=== PATIENT | female | born 2005 | race Caucasian/White ===

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

== ENCOUNTER 2025-07-06 20:05 | Emergency (ER) | payer SELFPAY ==
[2025-07-06 20:05] VITALS: BP 167/75; PULSE 99; RESP 16; TEMP 36.9; O2SAT 100; BMI 24.5
--- NOTE | 2025-07-06 20:25 | CT_ITS ---
PROCEDURE: ABDOMEN/PELVIS W IV CONT ONLY 07/06/2025 REASON FOR EXAM: ABDOMINAL PAIN TECHNIQUE: Procedure Code: [id number] Modality: CT Procedure: ABDOMEN/PELVIS W IV CONT ONLY Coronal and Sagittal reconstruction series were provided. CONTRAST: 100 cc of Isovue 370 One or more dose reduction techniques were used (e.g., Automated exposure control, adjustment of the mA and/or kV according to patient size, use of iterative reconstruction technique. COMPARISON: None available. FINDINGS: Lung bases: Unremarkable. Liver: Normal size. No mass. Gallbladder: Unremarkable. No biliary ductal dilatation. Spleen: Normal size. Pancreas: Normal size without evidence of mass surrounding inflammation or ductal dilation. Adrenals: No masses. Kidneys: Normal renal sizes. No hydronephrosis. Bladder: Unremarkable. Reproductive Organs: Normal uterine size and contour. Fluid-filled endometrium is likely physiologic. Ovaries are unremarkable. Bowel: Moderate colonic stool burden suggesting constipation. No bowel obstruction. No inflammatory changes. Appendix: The appendix is not identified. There is no inflammatory process identified in the right lower quadrant to suggest appendicitis. Lymph nodes: Unremarkable. Vasculature: The abdominal aorta and IVC are normal. Peritoneum / Retroperitoneum: No free fluid or air. Bones: No acute fractures. CT/Abdomen/Pelvis W IV Cont ONLY IMPRESSION: 1. No acute findings in the abdomen or pelvis. 2. Moderate colonic stool burden suggesting constipation. Reading Location: [facility]
--- NOTE | 2025-07-06 20:27 | ED.VIS.GI ---
HPI <Dr. Yasmany Gonzáles DO - Last Filed: 07/07/25 01:01> HPI - GI History of Present Illness Chief Complaint: Abd Pain Informant: patient Abdominal Pain/Flank Pain Onset: Days (3) Context: Gradual Onset Timing: Continuous Quality: Burning and Stabbing Location: LUQ Worsened by: Nothing Relieved by: Nothing Nausea/Vomiting/Emesis GI Symptom: Positive for Nausea and Vomiting Quality: Positive for Nonbilious; Negative for Blood streaks, Coffee ground or Hematemesis Diarrhea/Melena/Hematochezia GI Symptom: Negative for Diarrhea, Melena or Hematochezia Associated Symptoms Associated Symptoms: Negative for Dysuria, Frequency or Hematuria LMP: 06/21/2025 Narrative Narrative: Patient presents with left upper quadrant abdominal pain that has been constant for the past 3 days. Patient states it is gradually getting worse. Patient describes it as burning and stabbing. Patient states it is mainly over the left upper abdomen. Patient admits to some nausea and vomiting. Patient denies any hematemesis or coffee-ground emesis. Patient states nothing makes it better and nothing makes it worse. Patient denies any diarrhea, melena, or hematochezia. Patient denies any dysuria, frequency, or hematuria. Patient dates her last menstrual period was 06/21/2025. Patient denies any fevers or chills. PFSH <Dr. Yasmany Gonzáles, - Last Filed: 07/07/25 01:01> PFS Medical History (Updated 07/07/25 @ 04:[address] Marito Montanez MD) Depression Medical History no medical history Home Medications Medication Instructions Recorded Last Taken Type sertraline 25 mg tablet 25 mg PO .q3days 10/04/24 Unknown History dicyclomine 20 mg tablet 20 mg PO Q6H PRN PRN abdominal 07/07/25 Unknown Rx discomfort #12 tabs Allergy/AdvReac Type Severity Reaction Status Date / Time No Known Allergies Allergy Verified 07/06/25 20:06 Surgical History no surgical history no surgical history Social History Smoking Status: Never smoker ROS <Dr. Yasmany Gonzáles, DO - Last Filed: 07/07/25 01:01> ROS ED Constitutional Constitutional ED: Denies chills or fever(s) Eyes Eyes: Denies blurry vision or change in vision ENT ENT ED: Denies rhinorrhea or sore throat Cardiovascular Cardiovascular: Denies chest pain or palpitations Respiratory/Chest Respiratory/Chest: Denies cough or dyspnea Gastrointestinal Gastrointestinal: Reports abdominal pain, nausea and vomiting; Denies diarrhea or melena Genitourinary Genitourinary ED: Denies dysuria or hematuria Musculoskeletal Musculoskeletal: Denies back pain or neck pain Integumentary Denies abscess or rash Neurologic Neurologic: Denies headache(s) or weakness Allergic/Immunologic Allergic/Immunologic ED: Denies mouth swelling or urticaria EXAM <Dr. Yasmany Gonzáles DO - Last Filed: 07/07/25 01:01> Physical Exam Const Vital Signs: 07/06/25 20:05 07/06/25 22:24 07/07/25 00:00 Temperature 98.5 F Temperature Source Oral Pulse Rate 99 84 78 Respiratory Rate 16 16 14 Blood Pressure 167/75 H 137/86 H 114/72 Blood Pressure Mean 105 103 86 Pulse Ox 100 100 98 Oxygen Delivery Method Room Air Room Air Room Air 07/07/25 02:00 07/07/25 04:00 Temperature Temperature Source Pulse Rate 74 76 Respiratory Rate 14 12 Blood Pressure 114/62 116/79 Blood Pressure Mean 79 91 Pulse Ox 97 98 Oxygen Delivery Method Room Air Room Air Positive well nourished and well developed General Appearance ED: well developed and NAD HEENT Reports moist mucous membranes Neck supple and no JVD Resp normal respiratory effort and clear to auscultation bilaterally Cardio regular rate and regular rhythm GI non-distended Palpation: soft and tender epigastric and LUQ; Negative for guarding or rebound tenderness present Neuro CN's II-XII intact bilaterally, moves all extremities and no sensory deficits noted Sensorium / Orientation: alert Motor Exam: strength 5/5 throughout Psych mental status grossly normal <Dr. Marito Montanez MD - Last Filed: 07/07/25 04:55> Physical Exam Const Vital Signs: 07/06/25 20:05 07/06/25 22:24 07/07/25 00:00 Temperature 98.5 F Temperature Source Oral Pulse Rate 99 84 78 Respiratory Rate 16 16 14 Blood Pressure 167/75 H 137/86 H 114/72 Blood Pressure Mean 105 103 86 Pulse Ox 100 100 98 Oxygen Delivery Method Room Air Room Air Room Air 07/07/25 02:00 07/07/25 04:00 Temperature Temperature Source Pulse Rate 74 76 Respiratory Rate 14 12 Blood Pressure 114/62 116/79 Blood Pressure Mean 79 91 Pulse Ox 97 98 Oxygen Delivery Method Room Air Room Air [facility] <Dr. Yasmany Gonzáles, DO - Last Filed: 07/07/25 01:01> [facility] Narrative Medical decision making narrative: Differential diagnosis includes gastritis, gastroenteritis, cholecystitis, cholelithiasis, choledocholithiasis, peptic ulcer disease, duodenal ulcer, pancreatitis, urinary tract infection, ureteral calculus, pyelonephritis, and . CT scan of the abdomen and pelvis will be obtained to assess for cholecystitis, cholelithiasis, pancreatitis, ureteral calculus, bowel obstruction, and perforation. CBC will be obtained to assess for leukocytosis and anemia. Comprehensive metabolic profile will be obtained to assess for hepatic function, renal function, and electrolyte abnormality. Lipase will be obtained to assess for pancreatitis. Serum hCG will be obtained to assess for . History & Record Review Additional record(s) reviewed:: Prior ED visit Lab Data Attestation: I reviewed the patient's lab results. Lab results narrative: CBC was reviewed. There is a mild anemia with a hemoglobin of 11.9. The remainder is within normal limits. Comprehensive metabolic profile was reviewed and was within normal limits. Lipase was reviewed and was normal at 15. Serum hCG was reviewed and was negative. Labs: Laboratory Results - last 24 hr 07/06/25 20:32 WBC 10.1 RBC 4.50 Hgb 11.9 L Hct 37.1 MCV 82.4 MCH 26.4 L MCHC 32.1 RDW Std Deviation 44.4 H RDW Coeff of Sam 14.7 H Plt Count 315 MPV 10.4 Immature Gran % (Auto) 0.300 Neut % (Auto) 63.2 Lymph % (Auto) 26.0 [place] % (Auto) 8.7 Eos % (Auto) 1.4 Baso % (Auto) 0.4 Absolute Neuts (auto) 6.4 Absolute Lymphs (auto) 2.63 Nucleated RBC % 0 Sodium 140 Potassium 3.7 Chloride 102 Carbon Dioxide 26.6 Anion Gap 12 BUN 10 Creatinine 0.72 Estim Creat Clear Calc 107.13 Est GFR (MDRD) Non-Af 122 BUN/Creatinine Ratio 13.3 Glucose 105 H Calcium 9.4 Total Bilirubin < 0.15 AST 21 ALT 17 Alkaline Phosphatase 60 Total Protein 7.5 Albumin 4.7 Globulin 2.9 Albumin/Globulin Ratio 1.6 Lipase 15 Serum , Qual NEGATIVE Radiography Diagnostic Testing: Clinical Impression(s) from Imaging Studies Abdomen/Pelvis CT 07/06/25 20:25 IMPRESSION: 1. No acute findings in the abdomen or pelvis. 2. Moderate colonic stool burden suggesting constipation. Reading Location: [facility] Treatment and Re-Evaluation :: Patient was given IV fluids, morphine, and Zofran. Patient was given a repeat dose of morphine. Patient was feeling better on reevaluation. Patient was advised of her findings. Care of the patient was turned over to the oncoming physician pending CT scan results. <Dr. Marito Montanez MD - Last Filed: 07/07/25 04:55> [facility] Lab Data Labs: Laboratory Results - last 24 hr 07/06/25 20:32 WBC 10.1 RBC 4.50 Hgb 11.9 L Hct 37.1 MCV 82.4 MCH 26.4 L MCHC 32.1 RDW Std Deviation 44.4 H RDW Coeff of Sam 14.7 H Plt Count 315 MPV 10.4 Immature Gran % (Auto) 0.300 Neut % (Auto) 63.2 Lymph % (Auto) 26.0 [place] % (Auto) 8.7 Eos % (Auto) 1.4 Baso % (Auto) 0.4 Absolute Neuts (auto) 6.4 Absolute Lymphs (auto) 2.63 Nucleated RBC % 0 Sodium 140 Potassium 3.7 Chloride 102 Carbon Dioxide 26.6 Anion Gap 12 BUN 10 Creatinine 0.72 Estim Creat Clear Calc 107.13 Est GFR (MDRD) Non-Af 122 BUN/Creatinine Ratio 13.3 Glucose 105 H Calcium 9.4 Total Bilirubin < 0.15 AST 21 ALT 17 Alkaline Phosphatase 60 Total Protein 7.5 Albumin 4.7 Globulin 2.9 Albumin/Globulin Ratio 1.6 Lipase 15 Serum , Qual NEGATIVE Radiography Diagnostic Testing: Clinical Impression(s) from Imaging Studies Abdomen/Pelvis CT 07/06/25 20:25 IMPRESSION: 1. No acute findings in the abdomen or pelvis. 2. Moderate colonic stool burden suggesting constipation. Reading Location: [facility] Treatment and Re-Evaluation Comments:: Patient checked out to me pending CT results. There were significant delays, the patient was here for almost [address] resulted. I reviewed the images and the report which I agree with and it is essentially negative for any acute but there is a significant amount of stool burden in the colon. I did reevaluated the patient. She is asymptomatic and is doing well. She was having left upper quadrant pain, and she does confirm that she has been having some constipation lately and trouble getting all of the stool out, or so it felt to her. Given this, it certainly is conceivable she was having colonic spasms as etiology for her pain in the last couple days. I am going to give her prescription for some dicyclomine just in case the pain returns and advise that she use a stool softener and follow-up with her doctor she is comfortable with that plan. Discharge Plan Triage Chief Complaint: Abd Pain ED Provider: Yasmany Gonzáles Dx/Rx/DC Orders Clinical Impression: Abdominal pain, left upper quadrant, Constipation Instructions: ED Abdominal Pain Unkn Cause Fem, ED Constipation (Adult) Prescriptions: New dicyclomine 20 mg tablet 20 mg PO Q6H PRN PRN (Reason: abdominal discomfort) Qty: 12 0RF No Action sertraline 25 mg tablet 25 mg PO .q3days Patient Comments: pt is in processing of tapering down on medication Primary Care Provider: Elen Turner NP Referrals: Elen Turner NP, [employer] [Primary Care Provider, Medical] - 5-7 Days Print Language: Lao Disposition Disposition: Home, Self Care D/C Safety Score for UGIB <Dr. Yasmany Gonzáles, DO - Last Filed: 07/07/25 01:01> Assessment [place] Bleeding Score (GBS): Stratifies upper GI bleeding patients who are "low-risk" and candidates for outpatient management. Hemoglobin, BUN, Recent Vital Signs: Hgb 11.9 g/dL (12.0-15.0) L 07/06/25 20:32 BUN 10 mg/dL (4-19) 07/06/25 20:32 Pulse Rate 76 Blood Pressure 116/79 Score Interpretation: Score of 0: A GBS of 0 is a “Low Risk” GI bleed, and is highly sensitive (99.6% in a 2007 retrospective study) for predicting which patients did not require any “medical intervention”: blood transfusion, endoscopy, or surgery. This was confirmed in a 2009 [facility] study where patients with a score of 0 were actually discharged and had no GI bleeding mortality at 6 month followup Score above 0: A GBS greater than zero suggests a “High Risk” GI bleed that is likely to require “medical intervention”: transfusion, endoscopy, or surgery. A higher GBS also correlated with a higher likelihood of needing intervention Scores >/= 6 are associated with >50% risk of needing intervention <Dr. Marito Montanez MD - Last Filed: 07/07/25 04:55> Assessment Hemoglobin, BUN, Recent Vital Signs: Hgb 11.9 g/dL (12.0-15.0) L 07/06/25 20:32 BUN 10 mg/dL (4-19) 07/06/25 20:32 Pulse Rate 76 Blood Pressure 116/79 D/C Safety Score for LGIB <Dr. Yasmany Gonzáles DO - Last Filed: 07/07/25 01:01> Assessment Assessment Tool: Readmission and adverse event risk in patients with acute lower GI bleeding. Hemoglobin and Recent Vital Signs: Hgb 11.9 g/dL (12.0-15.0) L 07/06/25 20:32 Pulse Rate 76 07/07/25 04:00 Blood Pressure 116/79 07/07/25 04:00 Score Interpretation: Probability Percentage of safe discharge (absence of rebleeding, blood transfusion, therapeutic intervention, 28 day readmission, or ) Score of 8 or below: Consider discharge, with appropriate precautions. Score of 9 or above: Discharge NOT recommended. Consider admission with further workup and resuscitation as necessary. <Dr. Marito Montanez MD - Last Filed: 07/07/25 04:55> Assessment Hemoglobin and Recent Vital Signs: Hgb 11.9 g/dL (12.0-15.0) L 07/06/25 20:32 Pulse Rate 76 07/07/25 04:00 Blood Pressure 116/79 07/07/25 04:00
[2025-07-06] MEDS: 0.9% Normal Saline (1000mL) 1,000 ML 999 ML IV (20:31)
[2025-07-06 20:44] LABS: Hematocrit 37.1 % (37-47); Hemoglobin 11.9 g/dL (12.0-15.0); Immature Granulocytes Count 0.030 X10^3/uL (0.0-0.0); Mean Corp Hgb Conc 32.1 g/dL (32-36); Mean Corpuscular Volume 82.4 fL (81-99); Mean Platelet Vol. 10.4 fl (6.2-12.0); NRBC Flagged by Analyzer 0 % (0-5); Platelet Count 315 K/mm3 (150-450); RBC Distribution Width CV 14.7 % (11.6-14.6); RBC Distribution Width SD 44.4 fl (35.1-43.9); Red Blood Count 4.50 M/mm3 (4.2-5.4); White Blood Count 10.1 K/mm3 (4.4-11.0)
--- OUTSIDE RECORDS SUMMARY | 2025-07-06 20:49 | XMS RPT_ITS | CCD ---
Author Organization [facility] Care Team Providers Care Prepress Specialist Name Role Phone Christine Archibald Unavailable Paul Winter Unavailable BRIEN DUDLEY Unavailable Unavailable REFERRED, SELF Unavailable Unavailable BRIEN DUDLEY Unavailable Unavailable Garcia Domingo MD Primary Care Provider Garcia Domingo MD Primary Care Provider Garcia Domingo MD Primary Care Provider Danna Curiel MD Primary Care Provider Podlogar CRATE BUILDER.Negro MOTA Unavailable Roni Viera Attending Unavailable Podlogar COMPLIANCE REVIEW OFFICERNegro Primary Care Unavailable Podlogar CRATE BUILDER.Negro MOTA Unavailable Knoble CRATE BUILDER.Jo MOTA Unavailable Knoble CRATE BUILDER.Jo MOTA Unavailable SEIFRIED, GARCIA Primary Care Unavailable SEIFRIED, GARCIA Attending Unavailable SEIFRIED, GARCIA Attending Unavailable SEIFRIED, GARCIA Primary Care Unavailable SEIFRIED, GARCIA Primary Care Unavailable SEIFRIED, GARCIA Attending Unavailable SELF Referring Unavailable DANNA CURIEL Primary Care Unavailab yosef PODLOGARNEGRO Attending Unavailable DANNA CURIEL Primary Care Unavailab le PODLOGARNEGRO Attending Unavailable BRIANDA, GARCIA Referring Unavailable Medications Current Medications Medication Drug Class(es) Dates Sig (Normalized) Sig (Original) ferrous sulfate 325 mg oral tablet (3 sources) Start: 05-04-2022 End: 08-02-2022 take 1 tablet by mouth once daily at breakfast ferrous sulfate 325 mg (65 mg iron) tablet Take 1 tablet by mouth daily with breakfast. 30 tablet 2 05/04/2022 08/02/2022 Active Comment on above: Take 1 tablet by emelia th daily with breakfast. sertraline 25 mg oral tablet (20 sources) Serotonin Reuptake Inhibitor Start: 03-19-2025 take 1 tablet by mouth once daily sertraline (ZOLOFT) 25 mg tablet Indications: Anxiety with depression Take 1 tablet by mouth once daily. 30 tablet 5 03/19/2025 Active Start: 03-19-2025 take 1 tablet by emelia th once daily sertraline (ZOLOFT) 50 mg tablet Indications: Anxiety with depression Take 1 tablet by mouth once daily. 30 tablet 5 03/19/2025 Active Start: 04-25-2024 End: 03-15-2025 take 1 tablet by mouth once daily sertraline (ZOLOFT) 25 mg tablet Indications: Anxiety with depression take 1 tablet by mouth once daily 30 tablet 5 12/27/2024 03/15/2025 Discontinued Start: 02-20-2024 End: 03-15-2025 take 1 tablet by mouth once daily sertraline (ZOLOFT) 50 mg tablet Indications: Anxiety with depression take 1 tablet by mouth once daily 30 tablet 5 12/27/2024 03/15/2025 Discontinued Start: 01-23-2024 End: 02-20-2024 take 1 tablet by mouth once daily sertraline (ZOLOFT) 25 mg tablet Indications: Anxiety with depression Take 1 tablet by mouth once daily. 30 tablet 1 01/23/2024 02/20/2024 Discontinued Start: 05-17-2022 End: 10-17-2023 take 1 tablet by mouth once daily sertraline (ZOLOFT) 25 mg tablet Indications: Anxiety with depression Take 1 tablet by mouth once daily. 30 tablet 2 06/16/2022 10/17/2023 Discontinued (Discontinued by Patient) Comment on above: Take 1 tablet by emelia th once daily. Completed/Discontinued Medications Medication Drug Class(es) Dates Sig (Normalized) Sig (Original) cholecalciferol, vitamin D3, (VITAMIN D3 ORAL) (6 sources) End: 12-20-2022 cholecalciferol, vitamin D3, (VITAMIN D3 ORAL) Take by mouth. 0 12/20/2022 Discontinued cholecalciferol, vitamin D3, (VITAMIN D3 ORAL) Take by mouth. 0 Active Comment on above: Take by mouth. doxycycline monohydrate 100 mg oral capsule (9 sources) Tetracycline-class Drug Start: End: doxycycline monohydrate (MONODOX) 100 mg capsule TAKE 1 CAPSULE BY MOUTH ONCE DAILY INCREASE DOSE DIRECTED FOR MONTHLY FLARES TO TWICE PER DAY FOR 7 DAYS EACH MONTH TOLERATED 03/08/2022 10/17/2023 Discontinued (Course of therapy completed) Comment on above: TAKE 1 CAPSULE BY [facility] ONCE DAILY INCREASE DOSE DIRECTED FOR MONTHLY FLARES TO TWICE PER DAY FOR 7 DAYS EACH MONTH TOLERATED fluticasone propionate 0.05 mg/actuat metered dose nasal spray (1 source) Corticosteroid Start: End: take 1 spray(s) nasal route once daily fluticasone (FLONASE) 50 mcg/actuation nasal spray Indications: Ear congestion, left Use 1 [place] in each nostril once daily. 15.8 mL 0 08/28/2021 04/29/2022 Discontinued (Other) Comment on above: Use 1 [place] in each nostril once daily. meclizine hydrochloride 12.5 mg oral tablet (10 sources) Antiemetic Start: End: take 1-2 tablets by mouth three times daily as needed for dizziness meclizine (ANTIVERT) 12.5 mg tab Indications: Vestibular disequilibrium involving left inner ear Take 1-2 tablets by mouth three times a day as needed (for dizziness). 60 tablet 0 10/17/2023 01/23/2024 Discontinued (Discontinued by Patient) Start: 08-28-2021 End: 12-20-2022 take 1-2 tablets by mouth three times daily as needed for dizziness meclizine (ANTIVERT) 12.5 mg tab Indications: Vestibular disequilibrium involving left inner ear Take 1-2 tablets by mouth three times daily as needed (for dizziness). 60 tablet 0 08/28/2021 12/20/2022 Discontinued Comment on above: Take 1-2 tablets by mouth three times daily as needed (for dizziness). Take 1-2 tablets by mouth three times a day as needed (for dizziness). propylene glycol 6 mg/ml ophthalmic solution (8 sources) Start: 11-24-2023 End: 09-10-2024 propylene glycoL (SYSTANE BALANCE) 0.6 % drop Use 1 Drop in both eyes two times a day. 15 mL 4 11/24/2023 09/10/2024 Discontinued (Course of therapy completed) Comment on above: Use 1 Drop in both e yes two times a day. tretinoin 0.0001 mg/mg topical gel (17 sources) Retinoid Start: 03-08-2022 End: 09-10-2024 tretinoin (RETIN-A) 0.01 % gel APPLY A PEA SIZED GLOBULE DIVIDED UP DIRECTED TO ACNE AFFECTED AREAS OF FACE EACH EVENING. LEAVE ON OVERNIGHT TOLERATED 03/08/2022 09/10/2024 Discontinued Comment on above: APPLY A PEA SIZED GL OBULE DIVIDED UP DIRECTED TO ACNE AFFECTED AREAS OF FACE EACH EVENING. LEAVE ON OVERNIGHT TOLERATED tropicamide 10 mg/ml ophthalmic solution (1 source) Anticholinergic Start: 11-24-2023 End: 11-24-2023 tropicamide 1 % 1 Drop (MYDRIACYL) Problems Active Problems Problem Classification Problem Date Documented Da te Episodic/Chronic Anxiety disorders (11 sources) Mixed anxiety and depressive disorder; Translations: [Other specified anxiety disorders] Onset: 09-10-2024 Chronic Blindness and vision defects (5 sources) Blurring of visual image; Translations: [Other visual disturbances] 10-17-2023 Episodic Conditions associated with dizziness or vertigo (3 sources) Labyrinthine disorder; 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, left ear] 10-17-2023 Episodic Headache; including migraine (3 sources) Headache; Translations: [Recurrent headache] 10-17-2023 Episodic Inflammation; infection of eye (except that caused by tuberculosis or sexually transmitteddisease) (1 source) Bilateral superficial keratitis; Translations: [Unspecified superficial keratitis, bilateral] 11-24-2023 Episodic Mood disorders (2 sources) Major depression single episode, in partial remission; Translations: [Major depressive disorder, single episode, in partial remission] Onset: 02-11-2025 02-11-2025 Chronic Nutritional deficiencies (20 sources) Vitamin D deficiency; Translations: [Vitamin D deficiency, unspecified] Onset: 10-22-2020 10-22-2020 Chronic Other non-traumatic joint disorders (2 sources) Pain in left knee; Translations: [Pain in joint, lower leg] Episodic Superficial injury; contusion (1 source) External constriction of right ring finger, initial encounter; Translations: [External constriction of right ring finger, initial encounter] Onset: 10-18-2024 Episodic Past or Other Problems Problem Classification Problem Date Documented Da te Episodic/Chronic Fracture of upper limb (3 sources) Greenstick fracture of shaft of radius, right arm, initial encounter for closed fracture; Translations: [Greenstick fracture of shaft of radius, right arm, initial encounter for closed fracture] Onset: 04-15-2017 04-15-2017 Episodic Malaise and fatigue (20 sources) Malaise and fatigue; Translations: [Other malaise] Onset: 10-22-2020 10-22-2020 Episodic Results Test Name Value Interpretation Reference Range Facility [facility] 02-11-2025 CNOV Office Visit (FAMPWS ) ROMI PYLE ([id number]) 5 F Date Time Provider Department 02/11/25 2:40 PM NEGRO TURNER During your visit today, we recorded the following information about you: Pulse Blood pressure Weight Height 102/minute 130/56 55.3 kg 1.532 m Negro Turner APRN.CNP 02/11/2025 3:20 PM Signed 02/11/2025 Patient presents with: Medication Problem: Would like to wean off of Zoloft. Recording using [employer] software for draft documentation of the visit was discussed with the patient/authorized medical customer service representative; all questions welcomed and answered. Patient/authorized medical customer service representative agreed to proceed SUBJECTIVE: This is a 19 year old that is here today for Above Complaints. Depression: - Increased Zoloft dosage to 100 mg daily in September. - Desires to decrease dosage, feeling "in a better place mentally." - No counseling or therapy currently. - Denies thoughts of self-harm or harm to others. PAST MEDICAL HISTORY Diagnosis Date Anxiety and depression Other acne ALLERGIES Patient has no known allergies. MEDICATIONS Current Outpatient Medications Medication Sig sertraline (ZOLOFT) 50 mg tablet take 1 tablet by mouth once daily sertraline (ZOLOFT) 25 mg tablet take 1 tablet by mouth once daily No current facility-administered medications for this visit. Medications and allergies reviewed by this provider. SOCIAL HISTORY Social History Tobacco Use Smoking status: Never Passive exposure: Current Smokeless tobacco: Never Tobacco comments: mother Vaping Use Vaping status: Never Used Substance Use Topics Alcohol use: Never Drug use: Never REVIEW OF SYSTEMS All other reviewed and negative other than HPI. OBJECTIVE: BP 130/56 Pulse 102 Ht 153.2 cm (5' 0.32") Wt 55.3 kg (122 lb) LMP 06/09/2024 (Approximate) SpO2 99% BMI 23.57 kg/m? . Vital signs reviewed by this provider. GENERAL: NAD, alert and oriented SKIN: unremarkable, no rash or skin lesions to exposed skin Meningococcal B Vaccine(1 of 2 - Standard) Never done Depression Screening due on 02/19/2025 Anxiety Screening due on 02/19/2025 GC (Gonorrhea) Screening (18-24) due on 09/10/2025 HPV Vaccine(1 - 3-dose series) due on 09/10/2025 Hepatitis C Screening due on 09/10/2025 HIV Screening due on 09/10/2025 Covid-19 Vaccine(2023- season) due on 09/10/2025 Chlamydia Screening (18-24) due on 09/10/2025 Influenza Vaccine(Season Ended) due on 04/22/2025 DTaP,Tdap,Td Vaccine(7 - Td or Tdap) due on 04/14/2027 Hepatitis B Vaccine Completed Meningococcal Conjugate Vaccine Aged Out 1. Major depressive disorder, single episode, in partial remission (F32.4) - Patient self-increased Zoloft to 100 mg in September; now desires to taper due to improved mental state. - Discussed potential for re-emergence of depressive symptoms during tapering process. - Advised gradual tapering over 4 weeks: 75 mg for one week, 50 mg for the next week, 25 mg for the following week, then discontinue. - Instructed to monitor for any signs of depression or anxiety during tapering. - If symptoms reappear, advised to restart Zoloft at 50 mg and notify me. - No current thoughts of self-harm or harm to others. - Patient understands and agrees with the plan. Negro Turner APRN.SENIOR RESEARCH PROJECT MANAGER Prescription instructions reviewed with patient as applicable. Patient advised if symptoms do not improve or if symptoms worsen sooner, to contact their primary care physician. Potential red flag symptoms discussed with the patient. Reviewed appropriate action plan to take if red flag symptoms occur. Patient agreeable to treatment plan. Medical Decision Making: Problems: Moderate: 1+ chronic illnesses with change Risk: Moderate: Drug management Medical Decision Making Level: 4 - Moderate Referring Provider: SELF [200] Allergies As of Date: 02/11/2025 (No Known Allergies) Date Reviewed: 02/11/2025 Reviewed by: Tejal Rodriguez MA - Fully Assessed Reason for Visit: Medication Problem [65] Cmt: Would like to wean off of Zoloft. Visit Diagnosis:Major depressive disorder, single episode, in partial remission [F32.4] Prescriptions as of 02/11/2025 - sertraline (ZOLOFT) 50 mg tablet take 1 tablet by mouth once daily - sertraline (ZOLOFT) 25 mg tablet take 1 tablet by mouth once daily Problem List As Of Date 02/11/2025 Noted Resolved Malaise and fatigue [R53.81, R53.83] 10/22/2020 Vitamin D deficiency [E55.9] 10/22/2020 Encounter Status:Closed by NEGRO TURNER on 02/11/25 Normal [facility] Emergency Department Summary on 10-04-2024 Emergency Department Summary [facility] Medical Records Department [address] [place] [id number] Emergency Department Summary 10/04/24 MR#: [id number] Acct: [id number] Name: ROMI PYLE Rep #: [id number] : 2005 19 From: Roni Viera DO PCP: Negro Turner COMPLIANCE REVIEW OFFICERAldoC Status:DEP ER Location: ED HPI History of Present Illness Chief Complaint: Other, Pain/Inj Detail of Chief Complaint: Ring stuck on right index finger Informant: patient Narrative Narrative: Patient presents to the emergency department with a ring that is stuck on her right index finger. Patient states that she placed a ring on her finger last night. She woke up this morning and tried to remove it at 1 come off despite using soapy water and multiple attempts. She complains of swelling to the finger now. Otherwise healthy with no significant medical history [facility] Medical History no medical history Home Medications ???Medication ???Instructions ???Recorded ???Last Taken ???Type sertraline 25 mg tablet 25 mg PO DAILY 10/04/24 Unknown Hi story sertraline 50 mg tablet 50 mg PO DAILY 10/04/24 Unknown Hi story Allergy/AdvReac Type Severity Reaction Status Date / Time No Known Allergies Allergy Verified 10/04/24 06:57 Social History Smoking Status: Never smoker ROS ROS ED Review of Systems ROS Unobtainable: other Constitutional Constitutional ED: Reports lethargy; Denies chills, fever(s), sweats or weight loss Eyes Eyes: Denies blurry vision, change in vision or diplopia ENT ENT ED: Denies rhinorrhea or sore throat Cardiovascular Cardiovascular: Denies chest pain, orthopnea or racing heartbeat Respiratory/Chest Respiratory/Chest: Denies cough, dyspnea, dyspnea on exertion, orthopnea or sputum Gastrointestinal Gastrointestinal: Denies abdominal pain, diarrhea, nausea or vomiting Genitourinary Genitourinary ED: Denies dysuria, hematuria or urinary frequency Musculoskeletal Musculoskeletal: Reports other Details: Swollen finger with ring stuck on right index finger ; Denies arthralgias, back pain, myalgias or neck pain Integumentary Denies abscess, Abrasions or rash Neurologic Neurologic: Denies headache(s) or weakness Psychiatric Psychiatric: Denies anxiety, depression or suicidal thoughts Endocrine Endocrinology: Denies polydipsia, polyphagia or polyuria Hematologic/Lymphatic Hematologic/Lymphatic: Denies easy bleeding, easy bruising or lymphadenopathy Allergic/Immunologic Allergic/Immunologic ED: Denies mouth swelling, tongue swelling or urticaria EXAM Physical Exam Const Vital Signs: 10/04/24 06:57 10/04/24 07:00 Temperature 98.8 F Temperature Source Oral Pulse Rate 101 H Respiratory Rate 18 Respiratory Effort Normal Non-Labored Respiratory Pattern Normal Blood Pressure 119/62 Blood Pressure Mean 81 Pulse Ox 100 Oxygen Delivery Method Room Air Positive well nourished and well developed General Appearance ED: well developed and NAD HEENT Reports TM's clear and moist mucous membranes normocephalic and atraumatic; Negative for trauma or tenderness Tympanic Membrane ED: Yes TM's clear Eyes PERRL and EOMs intact bilaterally General Eye ED: Negative for pale conjunctiva or scleral icterus Neck no lymphadenopathy, supple and no JVD General: Negative for tenderness Chest Wall inspection of chest normal and palpation of chest normal Chest: Negative for tenderness Resp normal respiratory effort and clear to auscultation bilaterally Effort and Inspection: Negative for respiratory distress or pain with movement Auscultation: Negative for rhonchi, wheezes or diminished lung sounds Cardio regular rate, regular rhythm, S1 normal heart sound, S2 normal heart sound and no murmurs Peripheral Pulses: pulses 2+ throughout GI normal to inspection, nondistended, normoactive bowel sounds, soft to palpation, non-tender, non- distended and no masses Back/Spine no CVA tenderness and no thoracic nor lumbar tenderness Extremity normal to inspection Extremity Narrative: Right ring finger-patient has a chain-link type ring on the proximal phalanx. There is soft tissue swelling and erythema of the soft tissues distal to the ring. Good cap refill. Decreased ability to flex and extend the digit secondary to swelling. General Extremety ED: Negative for edema General Extremity: Negative for edema Neuro oriented x3, CN's II-XII intact bilaterally, no sensory deficits noted and gait normal Sensorium / Orientation: awake, alert, oriented to person, oriented to place and oriented to time Motor Exam: strength 5/5 throughout and strength abnormal Psych mental status grossly normal Skin no rashes or lesions noted and no wounds MDM MDM MDM Narrative Medical decision making narrative: Patient presents with a ring t (more content not included)... Normal [facility] CNCOon 10-02-2024 CNCO Letter Text Normal [facility] CNOVon 09-10-2024 CNOV Office Visit (FAMPWS ) ROMI PYLE ([id number]) 5 F Date Time Provider Department 09/10/24 1:20 PM NEGRO TURNER During your visit today, we recorded the following information about you: Pulse Respiration Blood pressure Weight 78/minute 18/minute 116/62 54.9 kg Height 1.532 m Negro Turner APRN.CNP 09/10/2024 2:15 PM Signed 09/10/2024 Patient presents with: Transition Of Care: From Pediatrics SUBJECTIVE: This is a 19 year old that is here today for Above Complaints. Transferring care from pediatrics to family medicine Does yoga at home. Does not follow any specific diet. Anxiety and depression: taking Zoloft as prescribed without side effects. Does not attend counseling. Denies SI, HI or insomnia Past medical, surgical, family, social hx, medications allergies and health maintenance reviewed and updated PAST MEDICAL HISTORY Diagnosis Date Anxiety and depression Other acne ALLERGIES Patient has no known allergies. MEDICATIONS Current Outpatient Medications Medication Sig sertraline (ZOLOFT) 25 mg tablet Take 1 tablet by mouth once daily. sertraline (ZOLOFT) 50 mg tablet Take 1 tablet by mouth once daily. No current facility-administered medications for this visit. Medications and allergies reviewed by this provider. SOCIAL HISTORY Social History Tobacco Use Smoking status: Never Passive exposure: Current Smokeless tobacco: Never Tobacco comments: mother Vaping Use Vaping status: Never Used REVIEW OF SYSTEMS GENERAL: No weight loss, malaise or fevers HEENT: Negative for frequent or significant headaches, No changes in hearing or vision, no nose bleeds or other nasal problems NECK: Negative for lumps, goiter, pain and significant neck swelling RESPIRATORY: Negative for cough, hemoptysis, wheezing, COPD, dyspnea or shortness of breath CARDIOVASCULAR: Negative for chest pain, leg swelling, hypertension, CHF or palpitations GI: No nausea, vomiting, or diarrhea : No history of dysuria, frequency or incontinence BORDERER: Negative for abnormal vaginal bleeding, abnormal vaginal discharge MUSCULOSKELETAL: Negative for joint pain or swelling, back pain or muscle pain SKIN: Negative for lesions, rash, and itching PSYCH: Negative for sleep disturbance, mood disorder and recent psychosocial stressors HEMATOLOGY/LYMPHOLOGY: Negative for prolonged bleeding, bruising easily or swollen nodes ENDOCRINE: Negative for cold or heat intolerance, polyuria, polydipsia and goiter NEURO: No history of headaches, syncope, paralysis, seizures or tremors All other reviewed and negative other than HPI. OBJECTIVE: BP 116/62 Pulse 78 Resp 18 Ht 153.2 cm (5' 0.32") Wt 54.9 kg (121 lb) LMP 06/09/2024 (Approximate) SpO2 98% BMI 23.39 kg/m? . Vital signs reviewed by this provider. APPEARANCE Well appearing, alert, in no acute distress, well-hydrated, well nourished. EYES conjunctiva and sclera normal. EARS External ears normal, canals clear NECK Supple, no adenopathy; thyroid symmetric HEART RRR with normal S1 and S2, no murmurs, no gallops, no JVD appreciated LUNG clear to auscultation. No wheezes, rhonchi or rales ABDOMEN bowel sounds normoactive, no bruits, soft, non-tender, non-distended EXTREMITIES Extremities normal, No deformities, No skin discoloration, and No edema SKIN Skin color, texture, turgor normal, no suspicious rashes or lesions to exposed skin Meningococcal B Vaccine: Consider Based On Risk(1 of 2 - Patient Seeks Protection) Never done Influenza Vaccine(1) due on 02/18/2025 GC (Gonorrhea) Screening (18-24) due on 09/10/2025 HPV Vaccine(1 - 3-dose series) due on 09/10/2025 Hepatitis C Screening due on 09/10/2025 HIV Screening due on 09/10/2025 Covid-19 Vaccine( - 2023- season) due on 09/10/2025 Chlamydia Screening (18-24) due on 09/10/2025 Depression Screening due on 02/19/2025 Anxiety Screening due on 02/19/2025 DTaP,Tdap,Td Vaccine(7 - Td or Tdap) due on 04/14/2027 Hepatitis B Vaccine Completed Meningococcal Conjugate Vaccine Aged Out ASSESSMENT/PLAN: 1. Encounter for medical examination to establish care - ICD9: V70.9, ICD10: Z00.00 (primary diagnosis) - Counseled on healthy diet and regular exercise - Follow up for annual exam in one year - COMPREHENSIVE METABOLIC PANEL - COMPLETE BLOOD COUNT AND DIFFERENTIAL 2. Anxiety with depression - ICD9: 300.4, ICD10: F41.8 - stable on current regime - follow-up as needed 3. Vitamin D deficiency - ICD9: 268.9, ICD10: E55.9 - VITAMIN D 25 HYDROXY Negro Podlogar, CRATE BUILDER.SENIOR RESEARCH PROJECT MANAGER Prescription instructions reviewed with patient as applicable. Patient advised if symptoms do not improve or if symptoms worsen sooner, to contact their primary care physician. Potential red flag symptoms discussed with the patient. Reviewed appropriate action plan to take if red flag sympto (more content not included)... Normal [facility] CNOVon 06-25-2024 CNOV Office Visit (PEDSWS ) ROMI PYLE ([id number]) 5 F Date Time Provider Department 06/25/24 3:30 PM GARCIA DOMINGO During your visit today, we recorded the following information about you: Temperature Pulse Respiration Blood pressure 98.3 degrees 84/minute 12/minute 124/68 Weight Last Period 53.1 kg 06/09/24 Garcia Domingo MD 06/26/2024 10:32 PM Signed PEDIATRIC FOLLOW UP VISIT Romi Pyle is a 19 year old female who presents with anxiety for follow up visit. Currently taking Sertraline 75 mg since April (2 months ago). The medication is helping. Grandfather about 2 weeks ago from pancreatic cancer. She feels like she is grieving but handling it well. She was very close to him and he was like a father figure to her. She is currently living with her mother. She gets along with her "normal." They have occasional disagreements. She is eating ok and sleeping ok. Current symptoms include some impaired memory/forgetfulness. This worsened after her grandfather . History was obtained from: patient and EMR PAST MEDICAL HISTORY Diagnosis Date NEGATIVE MEDICAL HISTORY ROS for medication side effects: Abdominal pain: no Appetite problems: no Drowsiness: no Sleep problems: no Headaches: no Agitation: no Lisa: no ADDITIONAL CONCERNS: None PHYSICAL EXAM: BP 124/68 Pulse 84 Temp 36.8 ?C (98.3 ?F) (Temporal Artery) Resp 12 Wt 53.1 kg (117 lb 1 oz) LMP 06/09/2024 (Approximate) Blood pressure %adrien are not available for patients who are 18 years or older. EXAM: APPEARANCE Well appearing, alert, in no acute distress, well-hydrated, well nourished. PSYCH: Posture and motor behavior: normal posture and motor behavior Dress, grooming, personal hygiene: normal dress and grooming Facial expression: smiling and good eye contact Speech: normal speech Mood: cheerful Coherency and relevance of thought: normal thought processes Memory: normal memory ASSESSMENT AND PLAN: Encounter Diagnosis ICD-10-CM 1.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 19:31-0400 Diastolic blood pressure 72 mm[Hg] Garcia Domingo MD Work Phone: [facility] 01-23-2024 19:31-0400 Heart rate 92 /min Garcia Domingo MD Work Phone: [facility] 01-23-2024 19:31-0400 Respiratory rate 16 /min Garcia Domingo MD Work Phone: [facility] 01-23-2024 19:31-0400 Systolic blood pressure 112 mm[Hg] Garcia Domingo MD Work Phone: [facility] 10-17-2023 15:48-0500 Body temperature 99 [degF] Garcia Domingo MD Work Phone: [facility] 10-17-2023 15:48-0500 Body weight 50.17 kg Garcia Domingo MD Work Phone: [facility] 10-17-2023 15:48-0500 Diastolic blood pressure 78 mm[Hg] Garcia Domingo MD Work Phone: [facility] 10-17-2023 15:48-0500 Heart rate 92 /min Garcia Domingo MD Work Phone: [facility] 10-17-2023 15:48-0500 Respiratory rate 12 /min Garcia Domingo MD Work Phone: [facility] 10-17-2023 15:48-0500 Systolic blood pressure 126 mm[Hg] Garcia Domingo MD Work Phone: [facility] 12-20-2022 13:34-0400 Body temperature 97.7 [degF] Stoney Umaña MD Work Phone: [facility] 12-20-2022 13:34-0400 Body weight 57.61 kg Stoney Umaña MD Work Phone: [facility] 12-20-2022 13:34-0400 Diastolic blood pressure 80 mm[Hg] Stoney Umaña MD Work Phone: [facility] 12-20-2022 13:34-0400 Heart rate 86 /min Stoney Umaña MD Work Phone: [facility] 12-20-2022 13:34-0400 Respiratory rate 16 /min Stoney Umaña MD Work Phone: [facility] 12-20-2022 13:34-0400 SaO2% (BldA) [Mass fraction] 100 % Stoney Umaña MD Work Phone: [facility] 12-20-2022 13:34-0400 Systolic blood pressure 132 mm[Hg] Stoney Umaña MD Work Phone: [facility] 06-16-2022 13:33-0400 Body temperature 98.4 [degF] Garcia Domingo MD Work Phone: [facility] 06-16-2022 13:33-0400 Body weight 57.18 kg Garcia Domingo MD Work Phone: [facility] 06-16-2022 13:33-0400 Diastolic blood pressure 74 mm[Hg] Garcia Domingo MD Work Phone: [facility] 06-16-2022 13:33-0400 Heart rate 82 /min Garcia Domingo MD Work Phone: [facility] 06-16-2022 13:33-0400 Respiratory rate 16 /min Garcia Domingo MD Work Phone: [facility] 06-16-2022 13:33-0400 Systolic blood pressure 122 mm[Hg] Garcia Domingo MD Work Phone: [facility] 05-17-2022 15:37-0400 Body height 153.7 cm Garcia Domingo MD Work Phone: [facility] 05-17-2022 15:37-0400 Body mass index (BMI) [Percentile] Per age and sex 81.29 % Garcia Domingo MD Work Phone: [facility] 05-17-2022 15:37-0400 Body temperature 97.59 [degF] Garcia Domingo MD Work Phone: [facility] 05-17-2022 15:37-0400 Body weight 57.61 kg Garcia Domingo MD Work Phone: [facility] 05-17-2022 15:37-0400 Diastolic blood pressure 68 mm[Hg] Garcia Domingo MD Work Phone: [facility] 05-17-2022 15:37-0400 Heart rate 84 /min Garcia Domingo MD Work Phone: [facility] 05-17-2022 15:37-0400 Respiratory rate 18 /min Garcia Domingo MD Work Phone: [facility] 05-17-2022 15:37-0400 Systolic blood pressure 110 mm[Hg] Garcia Domingo MD Work Phone: [facility] 04-29-2022 15:37-0400 Body height 153.6 cm Garcia Domingo MD Work Phone: [facility] 04-29-2022 15:37-0400 Body mass index (BMI) [Percentile] Per age and sex 78.26 % Garcia Domingo MD Work Phone: [facility] 04-29-2022 15:37-0400 Body temperature 98.91 [degF] Garcia Domingo MD Work Phone: [facility] 04-29-2022 15:37-0400 Body weight 56.25 kg Garcia Domingo MD Work Phone: [facility] 04-29-2022 15:37-0400 Diastolic blood pressure 68 mm[Hg] Garcia Domingo MD Work Phone: [facility] 04-29-2022 15:37-0400 Heart rate 92 /min Garcia Domingo MD Work Phone: [facility] 04-29-2022 15:37-0400 Respiratory rate 16 /min Garcia Domingo MD Work Phone: [facility] 04-29-2022 15:37-0400 Systolic blood pressure 108 mm[Hg] Garcia Domingo MD Work Phone: [facility] 04-15-2017 15:12-0400 BMI (Body Mass Index) 19.76 kg/m2 [facility] Work Phone: 04-15-2017 15:12-0400 Height 132.08 cm [facility] Work Phone: 04-15-2017 15:12-0400 Weight 34.47 kg Paul Winter [facility] Medical [facility] Work Phone: Encounters Encounter Date Encounter Type Care Provider Facility Start: 03-15-2025 End: 03-19-2025 Refill Danna Curiel MD Work Phone: [facility] [place] Comment on above: Refill Request Start: 02-11-2025 End: 02-11-2025 Patient encounter procedure Negro Turner CRATE BUILDER.SENIOR RESEARCH PROJECT MANAGER Work Phone: [facility] [place] Comment on above: Major depressive dis order, single episode, in partial remission Start: 02-11-2025 End: 02-11-2025 ambulatory SELF Facility:[facility] Start: 12-26-2024 End: 12-27-2024 Refill Garcia Domingo MD Work Phone: [facility] [place] Comment on above: Refill Request Start: 10-04-2024 End: 10-04-2024 Emergency department patient visit Remus Maximiliano Facility:[facility] Start: 09-10-2024 End: 09-10-2024 Patient encounter procedure Negro Turner CRATE BUILDER.SENIOR RESEARCH PROJECT MANAGER [facility] Comment on above: Encounter for medica l examination to establish care (Primary Dx); Anxiety with depression; Vitamin D deficiency Start: 09-10-2024 End: 09-10-2024 Patient encounter status Negro Turner CRATE BUILDER.SENIOR RESEARCH PROJECT MANAGER Work Phone: [facility] Start: 09-10-2024 End: 09-10-2024 ambulatory DANNA CURIEL Facility:[facility] Start: 09-10-2024 Encounter for genera l adult medical examination without abnormal findings NEGRO TURNER [facility] Start: 06-25-2024 End: 06-25-2024 ambulatory GARCIA DOMINGO Facility:[facility] Start: 06-25-2024 End: 06-25-2024 Office outpatient visit 15 minutes Garcia Domingo MD Work Phone: [facility] [place] Comment on above: Anxiety with depress ion (Primary Dx) Start: 04-25-2024 End: 04-25-2024 ambulatory GARCIA DOMINGO Facility:[facility] Start: 04-25-2024 End: 04-25-2024 Patient encounter procedure Garcia Domingo MD Work Phone: [facility] [place] Comment on above: Anxiety with depress ion (Primary Dx) Start: 04-19-2024 End: 05-02-2024 Telephone encounter Garcia Domingo MD Work Phone: [facility] [place] Comment on above: Patient Question Start: 02-20-2024 End: 02-20-2024 ambulatory GARCIA DOMINGO Facility:[facility] Start: 02-20-2024 End: 02-20-2024 Patient encounter procedure Garcia Domingo MD Work Phone: [facility] [place] Comment on above: Anxiety with depress ion Start: 01-23-2024 End: 01-23-2024 Patient encounter procedure Garcia Domingo MD Work Phone: [facility] Comment on above: Episode of dizziness (Primary Dx); Blurry vision, left eye; Anxiety with depression; Malaise and fatigue Start: 12-09-2023 End: 12-09-2023 Patient encounter procedure Cleveland Hamlin MD Work Phone: Otolaryngology Comment on above: Dizziness (Primary D x); Recurrent headache Start: 11-24-2023 End: 11-24-2023 Patient encounter procedure Tanesha Hu OD Work Phone: Ophthalmology Comment on above: Recurrent headache ( Primary Dx); Superficial keratitis of both eyes; Blurry vision, left eye; Hyperopia, bilateral; Regular astigmatism, bilateral Start: 10-17-2023 End: 10-17-2023 Patient encounter procedure Garcia Domingo MD Work Phone: [facility] [place] Comment on above: Blurry vision, left eye (Primary Dx); Recurrent headache; Vestibular disequilibrium involving left inner ear Start: 10-14-2023 ambulatory Garcia Stack ed, MD Work Phone: [facility] [place] Comment on above: Headache Start: 12-20-2022 End: 12-20-2022 Subsequent hospital visit by physician Xr [facility] [place] Work Phone: Radiology Comment on above: Acute pain of left k nee [M25.562] Start: 12-20-2022 End: 12-20-2022 Patient encounter procedure Stoney Umaña MD Work Phone: [facility] Comment on above: Acute pain of left k nee (Primary Dx) Start: 06-16-2022 End: 06-16-2022 Patient encounter procedure Garcia Domingo MD Work Phone: [facility] [place] Comment on above: Anxiety with depress ion Start: 05-17-2022 End: 05-17-2022 Patient encounter procedure Garcia Domingo MD Work Phone: [facility] [place] Comment on above: Anxiety with depress ion (Primary Dx) Start: 05-04-2022 ambulatory [facility] [place] Comment on above: Lab results Start: 05-04-2022 E-mail encounter fro m caregiver [facility] [place] Start: 04-30-2022 Telephone encounter Garcia martin MD Work Phone: [facility] [place] Comment on above: Results Start: 04-29-2022 End: 04-29-2022 Patient encounter procedure Garcia Domingo MD Work Phone: [facility] [place] Comment on above: Encounter for routin e child health examination with abnormal findings (Primary Dx); Depression with anxiety Start: 04-29-2022 End: 04-29-2022 Patient encounter status Garcia Domingo MD Work Phone: [facility] [place] Start: 04-14-2017 End: 04-14-2017 Ambulatory BRIEN Dionicio [facility] Procedures Date Procedure Procedure Detail Performing Clinician Start: 02-20-2024 Adult depression screening assessment Garcia Domingo MD Work Phone: Start: 12-20-2022 Radiologic exam knee complete 4/more views Stoney Umaña MD Work Phone: Start: 04-29-2022 Adult depression screening assessment Garcia Domingo MD Work Phone: Plan of Treatment Date Care Activity Detail Author Start: 04-14-2027 Urine microalbumin profile [facility] Start: 09-10-2025 Covid-19 Vaccine ( season) Covid-19 Vaccine () [facility] Comment on above: Postponed from 04/22 (Declined at this time) Start: 09-10-2025 GC (Gonorrhea) Screening (18-24) GC (Gonorrhea) Screening (18-24) [facility] Comment on above: Postponed from 05/19 (Declined at this time) Start: 09-10-2025 Hepatitis C screening Hepatitis C Sc reening [facility] Comment on above: Postponed from 05/19 (Declined at this time) Start: 09-10-2025 HIV screening HIV Screening [facility] Comment on above: Postponed from 05/19 (Declined at this time) Start: 09-10-2025 HPV Vaccine (1 - 3-d ose series) HPV Vaccine (1 - 3-dose series) [facility] Comment on above: Postponed from 05/19 (Declined at this time) Start: 09-10-2025 Screening for Chlamy chava trachomatis Chlamydia Screening () [facility] Comment on above: Postponed from 05/19 (Declined at this time) Start: 09-10-2025 End: 09-10-2025 Patient encounter procedure 09/10/2025 1:00 PM EST Office Visit [facility] [address] [place], [place] [id number] [employer]logar[employer]ro APRN.SENIOR RESEARCH PROJECT MANAGER [address] [place] [address] Physical [facility] [place] Comment on above: Physical Start: 04-22-2025 Influenza vaccination [facility] Start: 02-19-2025 Anxiety Screening Anxiety Screening [facility] Start: 02-19-2025 Depression Screening Depression Scre ening [facility] Start: 02-18-2025 Influenza vaccination Influenza Vacc ine (#1) [facility] Comment on above: Postponed from 04/22 (Declined at this time) Start: 09-10-2024 End: 12-10-2024 25-hydroxyvitamin D3 [Mass/volume] in Serum or Plasma VITAMIN D 25 HYDROXY Lab Routine Vitamin D deficiency Expected: 09/10/2024, Expires: 12/10/2024 [facility] Comment on above: Expected: 09/10/2024 , Expires: 12/10/2024 Start: 09-10-2024 End: 12-10-2024 CBC W Auto Differential panel - Blood COMPLETE BLOOD COUNT AND DIFFERENTIAL Lab Routine Encounter for medical examination to establish care Expected: 09/10/2024, Expires: 12/10/2024 [facility] Comment on above: Expected: 09/10/2024 , Expires: 12/10/2024 Start: 09-10-2024 End: 12-10-2024 Comprehensive metabolic 2000 panel - Serum or Plasma COMPREHENSIVE METABOLIC PANEL Lab Routine Encounter for medical examination to establish care Expected: 09/10/2024, Expires: 12/10/2024 [facility] Work Phone: Comment on above: Expected: 09/10/2024 , Expires: 12/10/2024 Start: 09-10-2024 End: 09-10-2024 Patient encounter procedure 09/10/2024 1:20 PM EST Office Visit [facility] [place] [address] [facility] [place] [address] Negro Turner APRN.SENIOR RESEARCH PROJECT MANAGER [address] [place] [address] est care, peds transfer, phys [facility] [place] Comment on above: est care, peds trans shravan, phys Start: 06-25-2024 End: 06-25-2024 Patient encounter procedure 06/25/2024 3:30 PM EST Office Visit [facility] [place] [address] [place] [address] Garcia Domingo MD [address] [place] [address] med check [facility] [place] Comment on above: med check Start: 04-27-2024 End: 04-27-2024 Patient encounter procedure 04/27/2024 9:00 AM EDT Office Visit Neurology [address] [place] [address] Nikos Galicia MD [address] [place] [address] Episode of dizziness [R42] Neurology Comment on above: Episode of dizziness [R42] Start: 04-22-2024 Covid-19 Vaccine () Covid-19 Vaccine () [facility] Start: 04-22-2024 Covid-19 Vaccine () Covid-19 Vaccine () [facility] Start: 04-22-2024 Influenza vaccination [facility] Start: 04-05-2024 End: 04-05-2024 Patient encounter procedure 04/05/2024 3:00 PM EDT Office Visit [facility] [place] [address] [place], [place] [id number] Garcia Domingo MD [address] [place], [place] [id number] 1 month Medication check [facility] [place] Comment on above: 1 month Medication c heck Start: 02-20-2024 End: 02-20-2024 Patient encounter procedure 02/20/2024 3:30 PM EDT Office Visit [facility] [place] [address] [place], [place] [id number] Garcia Domingo MD [address] [place] [address] Depression medication check [facility] [place] Comment on above: Depression medicatio n check Start: 02-10-2024 End: 02-10-2024 Patient encounter procedure 02/10/2024 9:00 AM EDT Office Visit Neurology [address] [place] [address] Nikos Galicia MD [address] [place] [address] Episode of dizziness [R42] Neurology Comment on above: Episode of dizziness [R42] Start: 01-23-2024 End: 04-23-2024 25-hydroxyvitamin D3 [Mass/volume] in Serum or Plasma VITAMIN D 25 HYDROXY Lab Routine Malaise and fatigue Expected: 01/23/2024, Expires: 04/23/2024 [facility] Comment on above: Expected: 01/23/2024 , Expires: 04/23/2024 Start: 01-23-2024 End: 04-23-2024 CBC W Auto Differential panel - Blood COMPLETE BLOOD COUNT AND DIFFERENTIAL Lab Routine Malaise and fatigue Expected: 01/23/2024, Expires: 04/23/2024 [facility] Work Phone: Comment on above: Expected: 01/23/2024 , Expires: 04/23/2024 Start: 01-23-2024 End: 04-23-2024 Comprehensive metabolic 2000 panel - Serum or Plasma COMPREHENSIVE METABOLIC PANEL Lab Routine Malaise and fatigue Expected: 01/23/2024, Expires: 04/23/2024 [facility] Comment on above: Expected: 01/23/2024 , Expires: 04/23/2024 Start: 01-23-2024 End: 04-23-2024 Ferritin [Mass/volume] in Serum or Plasma FERRITIN Lab Routine Malaise and fatigue Expected: 01/23/2024, Expires: 04/23/2024 [facility] Comment on above: Expected: 01/23/2024 , Expires: 04/23/2024 Start: 01-23-2024 End: 04-23-2024 Iron and Iron binding capacity panel - Serum or Plasma IRON AND TIBC Lab Routine Malaise and fatigue Expected: 01/23/2024, Expires: 04/23/2024 [facility] Comment on above: Expected: 01/23/2024 , Expires: 04/23/2024 Start: 01-23-2024 End: 04-23-2024 Thyrotropin [Units/volume] in Serum or Plasma THYROID STIMULATING HORMONE Lab Routine Malaise and fatigue Expected: 01/23/2024, Expires: 04/23/2024 [facility] Comment on above: Expected: 01/23/2024 , Expires: 04/23/2024 Start: 01-23-2024 End: 04-23-2024 Thyroxine (T4) free [Mass/volume] in Serum or Plasma T4 FREE/FREE THYROXINE Lab Routine Malaise and fatigue Expected: 01/23/2024, Expires: 04/23/2024 [facility] Comment on above: Expected: 01/23/2024 , Expires: 04/23/2024 Start: 08-22-2023 Behavioral Health Screening Behavioral Health Screening [facility] Start: 08-22-2023 Depression Assessment Depression Ass essment [facility] Start: 2023 Anxiety Screening Anxiety Screening [facility] Start: 2023 Depression Screening Depression Scre ening [facility] Start: 2023 GC (Gonorrhea) Screening (18-) GC (Gonorrhea) Screening (-) [facility] Start: 2023 Hepatitis C screening Hepatitis C Sc reening [facility] Start: 2023 HIV screening HIV Screening [facility] Start: 2023 Screening for Chlamy chava trachomatis Chlamydia Screening () [facility] Start: 04-29-2023 Adult depression screening assessment DEPRESSION SCREENING [facility] Start: 04-22-2023 Covid-19 Vaccine ( season) Covid-19 Vaccine ( season) [facility] Start: 04-22-2023 Influenza vaccination [facility] Start: 04-22-2022 Influenza vaccination INFLUENZA (#1) [facility] Start: 2021 Meningococcal B Vacc ine (1 of 2 - Standard) Meningococcal B Vaccine (1 of 2 - Standard) [facility] Start: 2021 Meningococcal B Vaccine: Consider Based On Risk (1 of 2 - Patient Seeks Protection) Meningococcal B Vaccine: Consider Based On Risk (1 of 2 - Patient Seeks Protection) [facility] Start: 2021 MENINGOCOCCAL CONJUG ATE (2 - 2-dose series) MENINGOCOCCAL CONJUGATE (2 - 2-dose series) [facility] Start: 2021 Meningococcal Conjug ate Vaccine (2 - 2-dose series) Meningococcal Conjugate Vaccine (2 - 2-dose series) [facility] Start: 2020 CHLAMYDIA SCREENING (<18) CHLAMYDIA SCREENING (<18) [facility] Start: 2020 GC (GONORRHEA) SCREENING (<18) GC (GONORRHEA) SCREENING (<18) [facility] Start: 2020 HPV Vaccine (1 - 3-d ose series) HPV Vaccine (1 - 3-dose series) [facility] Start: 2019 PEDS TO ADULT TRANSITION ANNUAL ASSESSMENT PEDS TO ADULT TRANSITION ANNUAL ASSESSMENT [facility] Start: 05-13-2017 End: 05-13-2017 Appointment Appointment [facility] Work Phone: Start: 2016 HPV VACCINE (1 - 2-d ose series) HPV VACCINE (1 - 2-dose series) [facility] Start: 2015 MENINGOCOCCAL B: Consider based on risk (1 of 2 - Risk Bexsero 2-dose series) MENINGOCOCCAL B: Consider based on risk (1 of 2 - Risk Bexsero 2-dose series) [facility] Start: 2014 HPV Vaccine (1 - 2-d ose series) HPV Vaccine (1 - 2-dose series) [facility] Start: 2005 COVID-19 VACCINE (#1) COVID-19 VACCI NE (#1) [facility] Immunizations Immunization Date Immunization Notes Care Provider Eddie campo 04-14-2017 meningococcal oligosaccharide (groups A, C, Y and W-135) diphtheria toxoid conjugate vaccine (MCV4O) Garcia Domingo MD Work Phone: [facility] 04-14-2017 tetanus toxoid, redu rm diphtheria toxoid, and acellular pertussis vaccine, adsorbed Garcia Domingo MD Work Phone: [facility] 11-03-2010 diphtheria, tetanus toxoids and acellular pertussis vaccine Garcia Domingo MD Work Phone: [facility] 11-03-2010 measles, mumps, rube lla, and varicella virus vaccine Garcia Domingo MD Work Phone: [facility] 11-03-2010 poliovirus vaccine, inactivated Garcia Domingo MD Work Phone: [facility] 06-19-2008 influenza, live, intranasal, quadrivalent Garcia Domingo MD Work Phone: [facility] 06-19-2008 influenza virus vacc ine, unspecified formulation Garcia Domingo MD Work Phone: [facility] 02-01-2007 hepatitis A vaccine, unspecified formulation Garcia Domingo MD Work Phone: [facility] 11-02-2006 diphtheria, tetanus toxoids and acellular pertussis vaccine Garcia Domingo MD Work Phone: [facility] 11-02-2006 haemophilus influenz ae type b conjugate and Hepatitis B vaccine Garcia Domingo MD Work Phone: [facility] 11-02-2006 pneumococcal conjuga te vaccine, 13 valent Garcia Domingo MD Work Phone: [facility] 05-20-2006 hepatitis A vaccine, unspecified formulation Garcia Domingo MD Work Phone: [facility] 05-20-2006 measles, mumps and r ubella virus vaccine Garcia Domingo MD Work Phone: [facility] 05-20-2006 varicella virus vaccine Bibiana Domingo MD Work Phone: [facility] 03-16-2006 poliovirus vaccine, inactivated Garcia Domingo MD Work Phone: [facility] 2005 diphtheria, tetanus toxoids and acellular pertussis vaccine Garcia Domingo MD Work Phone: [facility] 2005 haemophilus influenz ae type b vaccine, HbOC conjugate Garcia Domingo MD Work Phone: [facility] 2005 pneumococcal conjuga te vaccine, 13 valent Garcia Domingo MD Work Phone: [facility] 2005 diphtheria, tetanus toxoids and acellular pertussis vaccine Garcia Domingo MD Work Phone: [facility] 2005 haemophilus influenz ae type b conjugate and Hepatitis B vaccine Garcia Domingo MD Work Phone: [facility] 2005 pneumococcal conjuga te vaccine, 13 valent Garcia Domingo MD Work Phone: [facility] 2005 poliovirus vaccine, inactivated Garcia Domingo MD Work Phone: [facility] 2005 diphtheria, tetanus toxoids and acellular pertussis vaccine Garcia Domingo MD Work Phone: [facility] 2005 haemophilus influenz ae type b conjugate and Hepatitis B vaccine Garcia Domingo MD Work Phone: [facility] 2005 pneumococcal conjuga te vaccine, 13 valent Garcia Domingo MD Work Phone: [facility] 2005 poliovirus vaccine, inactivated Garcia Domingo MD Work Phone: [facility] Payers Date Payer Category Payer Self-pay 2022 Unknown [id number] 2016 Medicaid [id number] Unknown [id number] Social History Date Type Detail Facility Start: 04-29-2022 End: 10-17-2023 Tobacco smoking status NYIS Never smoked tobacco [facility] Start: 04-29-2022 End: 10-17-2023 Tobacco use and exposure Smokeless tobacco non-user [facility] Start: 04-29-2022 History SDOH Physica l Activity DPW 3 [facility] Start: 04-29-2022 History SDOH Physica l Activity MPS 1 [facility] Start: 04-29-2022 History SDOH Financial 5 [facility] Start: 04-29-2022 History SDOH Transpo rt Med 2 [facility] Start: 2005 Sex Assigned At Not on file [facility] Start: 04-19-2022 End: 06-16-2022 Exposure to SARS-CoV-2 (event) Not sure [facility] Start: 12-20-2022 End: 02-10-2024 History of Social function [facility] Start: 12-20-2022 End: 02-10-2024 Tobacco use panel [facility] How hard is it for y ou to pay for the very basics like food, housing, medical care, and heating Not hard at all [facility] (I/We) worried wheth er (my/our) food would run out before (I/we) got money to buy more. Never true [facility] In the past 12 month s, was there a time when you were not able to pay the mortgage or rent on time? No [facility] History of tobacco use Passive smoker [facility] Start: 10-17-2023 [facility] Start: 09-10-2024 End: 02-11-2025 Alcoholic beverage intake Lifetime non-drinker (finding) [facility] Are you now , , , , never or living with a partner? Never [facility] How often to you hav e a drink containing alcohol? Monthly or less [facility] How many standard drinks containing alcohol do you have on a typical day? 5 or 6 [facility] How often do you hav e 6 or more drinks on 1 occasion? Less than monthly [facility] How hard is it for y ou to pay for the very basics like food, housing, medical care, and heating Somewhat hard [facility] Do you feel stress - tense, restless, nervous, or anxious, or unable to sleep at night because your mind is troubled all the time - these days [OSQ] Only a little [facility] (I/We) worried wheth er (my/our) food would run out before (I/we) got money to buy more. Sometimes true [facility] NEGATED: Highlighted rowStart: KEMARF History of tobacco use Passive smoker [facility] Clinical Notes 04-29-2022 to 03-15-2025 Telephone Encounter - Nathaly Kelley - 03/15/2025 12:44 PM EDTTelephone Encounter - Nathaly Kelley - 03/15/2025 12:44 PM EDTPodNegro peterson APRN.SENIOR RESEARCH PROJECT MANAGER - 02/11/2025 2:46 PM EDT Note Date & Type Note Facility 03-15-2025 Telephone encounter Note Prescription Refill Information The patient has been identified by name and date of : Yes Caregiver verified no other encounters exist for this prescription request: Yes Caregiver confirmed with patient/requestor that no other refills are due, in the near future, with this provider at this time: Yes The last office visit in the department: 02-11-25 Does the patient have a future office visit with this provider/department: Yes Requested Prescriptions Pending Prescriptions Disp Refills sertraline (ZOLOFT) 25 mg tablet 30 tablet 5 Sig: Take 1 tablet by mouth once daily. sertraline (ZOLOFT) 50 mg tablet 30 tablet 5 Sig: Take 1 tablet by mouth once daily. Nathaly Zhao March 15, 2025 12:44 PM [facility] 03-15-2025 Miscellaneous Notes Prescription Refill Information The patient has been identified by name and date of : Yes Caregiver verified no other encounters exist for this prescription request: Yes Caregiver confirmed with patient/requestor that no other refills are due, in the near future, with this provider at this time: Yes The last office visit in the department: 02-11-25 Does the patient have a future office visit with this provider/department: Yes Requested Prescriptions Pending Prescriptions Disp Refills sertraline (ZOLOFT) 25 mg tablet 30 tablet 5 Sig: Take 1 tablet by mouth once daily. sertraline (ZOLOFT) 50 mg tablet 30 tablet 5 Sig: Take 1 tablet by mouth once daily. Nathaly Zhao March 15, 2025 12:44 PM documented in this encounter [facility] 02-11-2025 Note HNO ID: [id number] Author: NEGRO TURNER APRN.SENIOR RESEARCH PROJECT MANAGER Service: ? Author Type: Nurse Practitioner Type: Progress Notes Filed: 02/11/2025 15:20 Note Text: 02/11/2025 Patient presents with: Medication Problem: Would like to wean off of Zoloft. Recording using [employer] software for draft documentation of the visit was discussed with the patient/authorized medical customer service representative; all questions welcomed and answered. Patient/authorized medical customer service representative agreed to proceed SUBJECTIVE: This is a 19 year old that is here today for Above Complaints. Depression: - Increased Zoloft dosage to 100 mg daily in September. - Desires to decrease dosage, feeling "in a better place mentally." - No counseling or therapy currently. - Denies thoughts of self-harm or harm to others. PAST MEDICAL HISTORY Diagnosis Date Anxiety and depression Other acne ALLERGIES Patient has no known allergies. MEDICATIONS Current Outpatient Medications Medication Sig sertraline (ZOLOFT) 50 mg tablet take 1 tablet by mouth once daily sertraline (ZOLOFT) 25 mg tablet take 1 tablet by mouth once daily No current facility-administered medications for this visit. Medications and allergies reviewed by this provider. SOCIAL HISTORY Social History Tobacco Use Smoking status: Never Passive exposure: Current Smokeless tobacco: Never Tobacco comments: mother Vaping Use Vaping status: Never Used Substance Use Topics Alcohol use: Never Drug use: Never REVIEW OF SYSTEMS All other reviewed and negative other than HPI. OBJECTIVE: BP 130/56 Pulse 102 Ht 153.2 cm (5' 0.32") Wt 55.3 kg (122 lb) LMP 06/09/2024 (Approximate) SpO2 99% BMI 23.57 kg/m? . Vital signs reviewed by this provider. GENERAL: NAD, alert and oriented SKIN: unremarkable, no rash or skin lesions to exposed skin Meningococcal B Vaccine(1 of 2 - Standard) Never done Depression Screening due on 02/19/2025 Anxiety Screening due on 02/19/2025 GC (Gonorrhea) Screening (18-24) due on 09/10/2025 HPV Vaccine(1 - 3-dose series) due on 09/10/2025 Hepatitis C Screening due on 09/10/2025 HIV Screening due on 09/10/2025 Covid-19 Vaccine(2023- season) due on 09/10/2025 Chlamydia Screening (18-24) due on 09/10/2025 Influenza Vaccine(Season Ended) due on 04/22/2025 DTaP,Tdap,Td Vaccine(7 - Td or Tdap) due on 04/14/2027 Hepatitis B Vaccine Completed Meningococcal Conjugate Vaccine Aged Out 1. Major depressive disorder, single episode, in partial remission (F32.4) - Patient self-increased Zoloft to 100 mg in September; now desires to taper due to improved mental state. - Discussed potential for re-emergence of depressive symptoms during tapering process. - Advised gradual tapering over 4 weeks: 75 mg for one week, 50 mg for the next week, 25 mg for the following week, then discontinue. - Instructed to monitor for any signs of depression or anxiety during tapering. - If symptoms reappear, advised to restart Zoloft at 50 mg and notify me. - No current thoughts of self-harm or harm to others. - Patient understands and agrees with the plan. Negro Turner, BRENNAN.SENIOR RESEARCH PROJECT MANAGER Prescription instructions reviewed with patient as applicable. Patient advised if symptoms do not improve or if symptoms worsen sooner, to contact their primary care physician. Potential red flag symptoms discussed with the patient. Reviewed appropriate action plan to take if red flag symptoms occur. Patient agreeable to treatment plan. Medical Decision Making: Problems: Moderate: 1+ chronic illnesses with change Risk: Moderate: Drug management Medical Decision Making Level: 4 - Moderate [facility] 02-11-2025 History of Presen t illness Narrative 02/11/2025 Patient presents with: Medication Problem: Would like to wean off of Zoloft. Recording using [employer] software for draft documentation of the visit was discussed with the patient/authorized medical customer service representative; all questions welcomed and answered. Patient/authorized medical customer service representative agreed to proceed SUBJECTIVE: This is a 19 year old that is here today for Above Complaints. Depression: - Increased Zoloft dosage to 100 mg daily in September. - Desires to decrease dosage, feeling "in a better place mentally." - No counseling or therapy currently. - Denies thoughts of self-harm or harm to others. PAST MEDICAL HISTORY Diagnosis Date Anxiety and depression Other acne ALLERGIES Patient has no known allergies. MEDICATIONS Current Outpatient Medications Medication Sig sertraline (ZOLOFT) 50 mg tablet take 1 tablet by mouth once daily sertraline (ZOLOFT) 25 mg tablet take 1 tablet by mouth once daily No current facility-administered medications for this visit. Medications and allergies reviewed by this provider. SOCIAL HISTORY Social History Tobacco Use Smoking status: Never Passive exposure: Current Smokeless tobacco: Never Tobacco comments: mother Vaping Use Vaping status: Never Used Substance Use Topics Alcohol use: Never Drug use: Never REVIEW OF SYSTEMS All other reviewed and negative other than HPI. OBJECTIVE: BP 130/56 Pulse 102 Ht 153.2 cm (5' 0.32") Wt 55.3 kg (122 lb) LMP 06/09/2024 (Approximate) SpO2 99% BMI 23.57 kg/m . Vital signs reviewed by this provider. GENERAL: NAD, alert and oriented SKIN: unremarkable, no rash or skin lesions to exposed skin Meningococcal B Vaccine(1 of 2 - Standard) Never done Depression Screening due on 02/19/2025 Anxiety Screening due on 02/19/2025 GC (Gonorrhea) Screening (18-24) due on 09/10/2025 HPV Vaccine(1 - 3-dose series) due on 09/10/2025 Hepatitis C Screening due on 09/10/2025 HIV Screening due on 09/10/2025 Covid-19 Vaccine(2023- season) due on 09/10/2025 Chlamydia Screening (18-) due on 09/10/2025 Influenza Vaccine(Season Ended) due on 04/22/2025 DTaP,Tdap,Td Vaccine(7 - Td or Tdap) due on 04/14/2027 Hepatitis B Vaccine Completed Meningococcal Conjugate Vaccine Aged Out 1. Major depressive disorder, single episode, in partial remission (F32.4) - Patient self-increased Zoloft to 100 mg in September; now desires to taper due to improved mental state. - Discussed potential for re-emergence of depressive symptoms during tapering process. - Advised gradual tapering over 4 weeks: 75 mg for one week, 50 mg for the next week, 25 mg for the following week, then discontinue. - Instructed to monitor for any signs of depression or anxiety during tapering. - If symptoms reappear, advised to restart Zoloft at 50 mg and notify me. - No current thoughts of self-harm or harm to others. - Patient understands and agrees with the plan. Negro Turner APRN.SENIOR RESEARCH PROJECT MANAGER Prescription instructions reviewed with patient as applicable. Patient advised if symptoms do not improve or if symptoms worsen sooner, to contact their primary care physician. Potential red flag symptoms discussed with the patient. Reviewed appropriate action plan to take if red flag symptoms occur. Patient agreeable to treatment plan. Medical Decision Making: Problems: Moderate: 1+ chronic illnesses with change Risk: Moderate: Drug management Medical Decision Making Level: 4 - Moderate documented in this encounter [facility] 12-27-2024 Telephone encounter Note Last WCC: 09/10/2024 Last ADHD / Med Check visit: 09/10/2024 Verify RX Benefits Completed Last medication refill date: 06/25/2024 with 5 refills Requesting 30 day supply Retail pharmacy updated: Completed Patient aware RX will be sent to pharmacy. No need to notify patient. Health Maintenance due: Meningococcal B Vaccine(1 of 2 - Standard) Never done Pascual Wadsworth RN [facility] 12-27-2024 Miscellaneous Notes Last WCC: 09/10/2024 Last ADHD / Med Check visit: 09/10/2024 Verify RX Benefits Completed Last medication refill date: 06/25/2024 with 5 refills Requesting 30 day supply Retail pharmacy updated: Completed Patient aware RX will be sent to pharmacy. No need to notify patient. Health Maintenance due: Meningococcal B Vaccine(1 of 2 - Standard) Never done Pascual Wadsworth RN documented in this encounter [facility] 09-10-2024 Note HNO ID: [id number] Author: NEGRO TURNER APRN.SENIOR RESEARCH PROJECT MANAGER Service: ? Author Type: Nurse Practitioner Type: Progress Notes Filed: 09/10/2024 14:15 Note Text: 09/10/2024 Patient presents with: Transition Of Care: From Pediatrics SUBJECTIVE: This is a 19 year old that is here today for Above Complaints. Transferring care from pediatrics to family medicine Does yoga at home. Does not follow any specific diet. Anxiety and depression: taking Zoloft as prescribed without side effects. Does not attend counseling. Denies SI, HI or insomnia Past medical, surgical, family, social hx, medications allergies and health maintenance reviewed and updated PAST MEDICAL HISTORY Diagnosis Date Anxiety and depression Other acne ALLERGIES Patient has no known allergies. MEDICATIONS Current Outpatient Medications Medication Sig sertraline (ZOLOFT) 25 mg tablet Take 1 tablet by mouth once daily. sertraline (ZOLOFT) 50 mg tablet Take 1 tablet by mouth once daily. No current facility-administered medications for this visit. Medications and allergies reviewed by this provider. SOCIAL HISTORY Social History Tobacco Use Smoking status: Never Passive exposure: Current Smokeless tobacco: Never Tobacco comments: mother Vaping Use Vaping status: Never Used REVIEW OF SYSTEMS GENERAL: No weight loss, malaise or fevers HEENT: Negative for frequent or significant headaches, No changes in hearing or vision, no nose bleeds or other nasal problems NECK: Negative for lumps, goiter, pain and significant neck swelling RESPIRATORY: Negative for cough, hemoptysis, wheezing, COPD, dyspnea or shortness of breath CARDIOVASCULAR: Negative for chest pain, leg swelling, hypertension, CHF or palpitations GI: No nausea, vomiting, or diarrhea : No history of dysuria, frequency or incontinence BORDERER: Negative for abnormal vaginal bleeding, abnormal vaginal discharge MUSCULOSKELETAL: Negative for joint pain or swelling, back pain or muscle pain SKIN: Negative for lesions, rash, and itching PSYCH: Negative for sleep disturbance, mood disorder and recent psychosocial stressors HEMATOLOGY/LYMPHOLOGY: Negative for prolonged bleeding, bruising easily or swollen nodes ENDOCRINE: Negative for cold or heat intolerance, polyuria, polydipsia and goiter NEURO: No history of headaches, syncope, paralysis, seizures or tremors All other reviewed and negative other than HPI. OBJECTIVE: BP 116/62 Pulse 78 Resp 18 Ht 153.2 cm (5' 0.32") Wt 54.9 kg (121 lb) LMP 06/09/2024 (Approximate) SpO2 98% BMI 23.39 kg/m? . Vital signs reviewed by this provider. APPEARANCE Well appearing, alert, in no acute distress, well-hydrated, well nourished. EYES conjunctiva and sclera normal. EARS External ears normal, canals clear NECK Supple, no adenopathy; thyroid symmetric HEART RRR with normal S1 and S2, no murmurs, no gallops, no JVD appreciated LUNG clear to auscultation. No wheezes, rhonchi or rales ABDOMEN bowel sounds normoactive, no bruits, soft, non-tender, non-distended EXTREMITIES Extremities normal, No deformities, No skin discoloration, and No edema SKIN Skin color, texture, turgor normal, no suspicious rashes or lesions to exposed skin Meningococcal B Vaccine: Consider Based On Risk(1 of 2 - Patient Seeks Protection) Never done Influenza Vaccine(1) due on 02/18/2025 GC (Gonorrhea) Screening (18-24) due on 09/10/2025 HPV Vaccine(1 - 3-dose series) due on 09/10/2025 Hepatitis C Screening due on 09/10/2025 HIV Screening due on 09/10/2025 Covid-19 Vaccine( season) due on 09/10/2025 Chlamydia Screening (18-24) due on 09/10/2025 Depression Screening due on 02/19/2025 Anxiety Screening due on 02/19/2025 DTaP,Tdap,Td Vaccine(7 - Td or Tdap) due on 04/14/2027 Hepatitis B Vaccine Completed Meningococcal Conjugate Vaccine Aged Out ASSESSMENT/PLAN: 1. Encounter for medical examination to establish care - ICD9: V70.9, ICD10: Z00.00 (primary diagnosis) - Counseled on healthy diet and regular exercise - Follow up for annual exam in one year - COMPREHENSIVE METABOLIC PANEL - COMPLETE BLOOD COUNT AND DIFFERENTIAL 2. Anxiety with depression - ICD9: 300.4, ICD10: F41.8 - stable on current regime - follow-up as needed 3. Vitamin D deficiency - ICD9: 268.9, ICD10: E55.9 - VITAMIN D 25 HYDROXY Negro Turner, CRATE BUILDER.SENIOR RESEARCH PROJECT MANAGER Prescription instructions reviewed with patient as applicable. Patient advised if symptoms do not improve or if symptoms worsen sooner, to contact their primary care physician. Potential red flag symptoms discussed with the patient. Reviewed appropriate action plan to take if red flag symptoms occur. Patient agreeable to treatment plan. [facility] 09-10-2024 History of Presen t illness Narrative 09/10/2024 Patient presents with: Transition Of Care: From Pediatrics SUBJECTIVE: This is a 19 year old that is here today for Above Complaints. Transferring care from pediatrics to family medicine Does yoga at home. Does not follow any specific diet. Anxiety and depression: taking Zoloft as prescribed without side effects. Does not attend counseling. Denies SI, HI or insomnia Past medical, surgical, family, social hx, medications allergies and health maintenance reviewed and updated PAST MEDICAL HISTORY Diagnosis Date Anxiety and depression Other acne ALLERGIES Patient has no known allergies. MEDICATIONS Current Outpatient Medications Medication Sig sertraline (ZOLOFT) 25 mg tablet Take 1 tablet by mouth once daily. sertraline (ZOLOFT) 50 mg tablet Take 1 tablet by mouth once daily. No current facility-administered medications for this visit. Medications and allergies reviewed by this provider. SOCIAL HISTORY Social History Tobacco Use Smoking status: Never Passive exposure: Current Smokeless tobacco: Never Tobacco comments: mother Vaping Use Vaping status: Never Used REVIEW OF SYSTEMS GENERAL: No weight loss, malaise or fevers HEENT: Negative for frequent or significant headaches, No changes in hearing or vision, no nose bleeds or other nasal problems NECK: Negative for lumps, goiter, pain and significant neck swelling RESPIRATORY: Negative for cough, hemoptysis, wheezing, COPD, dyspnea or shortness of breath CARDIOVASCULAR: Negative for chest pain, leg swelling, hypertension, CHF or palpitations GI: No nausea, vomiting, or diarrhea : No history of dysuria, frequency or incontinence BORDERER: Negative for abnormal vaginal bleeding, abnormal vaginal discharge MUSCULOSKELETAL: Negative for joint pain or swelling, back pain or muscle pain SKIN: Negative for lesions, rash, and itching PSYCH: Negative for sleep disturbance, mood disorder and recent psychosocial stressors HEMATOLOGY/LYMPHOLOGY: Negative for prolonged bleeding, bruising easily or swollen nodes ENDOCRINE: Negative for cold or heat intolerance, polyuria, polydipsia and goiter NEURO: No history of headaches, syncope, paralysis, seizures or tremors All other reviewed and negative other than HPI. OBJECTIVE: BP 116/62 Pulse 78 Resp 18 Ht 153.2 cm (5' 0.32") Wt 54.9 kg (121 lb) LMP 06/09/2024 (Approximate) SpO2 98% BMI 23.39 kg/m . Vital signs reviewed by this provider. APPEARANCE Well appearing, alert, in no acute distress, well-hydrated, well nourished. EYES conjunctiva and sclera normal. EARS External ears normal, canals clear NECK Supple, no adenopathy; thyroid symmetric HEART RRR with normal S1 and S2, no murmurs, no gallops, no JVD appreciated LUNG clear to auscultation. No wheezes, rhonchi or rales ABDOMEN bowel sounds normoactive, no bruits, soft, non-tender, non-distended EXTREMITIES Extremities normal, No deformities, No skin discoloration, and No edema SKIN Skin color, texture, turgor normal, no suspicious rashes or lesions to exposed skin Meningococcal B Vaccine: Consider Based On Risk(1 of 2 - Patient Seeks Protection) Never done Influenza Vaccine(1) due on 02/18/2025 GC (Gonorrhea) Screening (18-24) due on 09/10/2025 HPV Vaccine(1 - 3-dose series) due on 09/10/2025 Hepatitis C Screening due on 09/10/2025 HIV Screening due on 09/10/2025 Covid-19 Vaccine( season) due on 09/10/2025 Chlamydia Screening (18-24) due on 09/10/2025 Depression Screening due on 02/19/2025 Anxiety Screening due on 02/19/2025 DTaP,Tdap,Td Vaccine(7 - Td or Tdap) due on 04/14/2027 Hepatitis B Vaccine Completed Meningococcal Conjugate Vaccine Aged Out ASSESSMENT/PLAN: 1. Encounter for medical examination to establish care - ICD9: V70.9, ICD10: Z00.00 (primary diagnosis) - Counseled on healthy diet and regular exercise - Follow up for annual exam in one year - COMPREHENSIVE METABOLIC PANEL - COMPLETE BLOOD COUNT AND DIFFERENTIAL 2. Anxiety with depression - ICD9: 300.4, ICD10: F41.8 - stable on current regime - follow-up as needed 3. Vitamin D deficiency - ICD9: 268.9, ICD10: E55.9 - VITAMIN D 25 HYDROXY Negro Turner APRN.SENIOR RESEARCH PROJECT MANAGER Prescription instructions reviewed with patient as applicable. Patient advised if symptoms do not improve or if symptoms worsen sooner, to contact their primary care physician. Potential red flag symptoms discussed with the patient. Reviewed appropriate action plan to take if red flag symptoms occur. Patient agreeable to treatment plan. documented in this encounter [facility] 06-25-2024 Note HNO ID: [id number] Author: GARCIA DOMINGO MD Service: ? Author Type: Physician Type: Progress Notes Filed: 06/26/2024 22:32 Note Text: PEDIATRIC FOLLOW UP VISIT Romi Pyle is a 19 year old female who presents with anxiety for follow up visit. Currently taking Sertraline 75 mg since April (2 months ago). The medication is helping. Grandfather about 2 weeks ago from pancreatic cancer. She feels like she is grieving but handling it well. She was very close to him and he was like a father figure to her. She is currently living with her mother. She gets along with her "normal." They have occasional disagreements. She is eating ok and sleeping ok. Current symptoms include some impaired memory/forgetfulness. This worsened after her grandfather . History was obtained from: patient and EMR PAST MEDICAL HISTORY Diagnosis Date NEGATIVE MEDICAL HISTORY ROS for medication side effects: Abdominal pain: no Appetite problems: no Drowsiness: no Sleep problems: no Headaches: no Agitation: no Lisa: no ADDITIONAL CONCERNS: None PHYSICAL EXAM: BP 124/68 Pulse 84 Temp 36.8 ?C (98.3 ?F) (Temporal Artery) Resp 12 Wt 53.1 kg (117 lb 1 oz) LMP 06/09/2024 (Approximate) Blood pressure %adrien are not available for patients who are 18 years or older. EXAM: APPEARANCE Well appearing, alert, in no acute distress, well-hydrated, well nourished. PSYCH: Posture and motor behavior: normal posture and motor behavior Dress, grooming, personal hygiene: normal dress and grooming Facial expression: smiling and good eye contact Speech: normal speech Mood: cheerful Coherency and relevance of thought: normal thought processes Memory: normal memory ASSESSMENT AND PLAN: Encounter Diagnosis ICD-10-CM 1. Anxiety with depression F41.8 ESTABLISH WITH PRIMARY CARE - NEW PATIENT sertraline (ZOLOFT) 25 mg tablet sertraline (ZOLOFT) 50 mg tablet 19 year old female with anxiety with optimization of symptoms and without significant medication side effects. PHQ-9 Score: 4 JERRY-7 Score: 3 - Continue current medication. - Continue current psychology/behavioral health management - Follow up in 3-6 months for anxiety follow up - Will place referral to establish with adult medicine since she is not in school this year (although she does plan to go to school in the future). Discussed option to stay in Peds, but she would like to transition to adult medicine if possible. Garcia Domingo MD [facility] 06-25-2024 History of Presen t illness Narrative PEDIATRIC FOLLOW UP VISIT oRmi Pyle is a 19 year old female who presents with anxiety for follow up visit. Currently taking Sertraline 75 mg since April (2 months ago). The medication is helping. Grandfather about 2 weeks ago from pancreatic cancer. She feels like she is grieving but handling it well. She was very close to him and he was like a father figure to her. She is currently living with her mother. She gets along with her "normal." They have occasional disagreements. She is eating ok and sleeping ok. Current symptoms include some impaired memory/forgetfulness. This worsened after her grandfather . History was obtained from: patient and EMR PAST MEDICAL HISTORY Diagnosis Date NEGATIVE MEDICAL HISTORY ROS for medication side effects: Abdominal pain: no Appetite problems: no Drowsiness: no Sleep problems: no Headaches: no Agitation: no Lisa: no ADDITIONAL CONCERNS: None PHYSICAL EXAM: BP 124/68 Pulse 84 Temp 36.8 C (98.3 F) (Temporal Artery) Resp 12 Wt 53.1 kg (117 lb 1 oz) LMP 06/09/2024 (Approximate) Blood pressure %adrien are not available for patients who are 18 years or older. EXAM: APPEARANCE Well appearing, alert, in no acute distress, well-hydrated, well nourished. PSYCH: Posture and motor behavior: normal posture and motor behavior Dress, grooming, personal hygiene: normal dress and grooming Facial expression: smiling and good eye contact Speech: normal speech Mood: cheerful Coherency and relevance of thought: normal thought processes Memory: normal memory ASSESSMENT & PLAN: Encounter Diagnosis ICD-10-CM 1. Anxiety with depression F41.8 ESTABLISH WITH PRIMARY CARE - NEW PATIENT sertraline (ZOLOFT) 25 mg tablet sertraline (ZOLOFT) 50 mg tablet 19 year old female with anxiety with optimization of symptoms and without significant medication side effects. PHQ-9 Score: 4 JERRY-7 Score: 3 - Continue current medication. - Continue current psychology/behavioral health management - Follow up in 3-6 months for anxiety follow up - Will place referral to establish with adult medicine since she is not in school this year (although she does plan to go to school in the future). Discussed option to stay in Peds, but she would like to transition to adult medicine if possible. Garcia Domingo MD documented in this encounter [facility] 04-28-2024 Telephone encounter Note attempted to call patient, no answer, voicemail not set up. [employer] message with below information sent to patient Alli England RN [facility] 04-28-2024 Miscellaneous Notes attempted to call patient, no answer, voicemail not set up. Mychart message with below information sent to patient Alli England RN Yes, she can take both of these medications. Garcia Domingo MD Pleas advise. Maggie Morris MA Patient calling to ask if it's okay for her to take OTC Cetirizine for allergies with Sertraline? Alice Roca RN documented in this encounter [facility] 04-27-2024 Telephone encounter Note Yes, she can take both of these medications. Garcia Domingo MD [facility] 04-25-2024 Instructions Garcia Domingo MD - 04/25/2024 9:58 AM EDT YOU SHOULD SEEK MEDICAL ATTENTION IMMEDIATELY FOR YOUR CHILD, AT THE NEAREST EMERGENCY DEPARTMENT OR BY CALLING 911, IF ANY OF THE FOLLOWING OCCURS: Your child has new or worsening thoughts of harming him/herself (suicidal thoughts) or harming others. Your child does not feel safe at home. You are concerned about your child s ability to remain safe at home. If your child has thoughts of hurting herself/himself, you can: Call 988. 988 is the three-digit, nationwide phone number to connect directly to the [place] Suicide and Crisis Lifeline. www.suicidepreventionlifeline.or [employer] Apps Text 4htzv to 265890 Call the crisis hotline for: [facility]: Mobile Crisis/Frontline Services at [phone] [facility]: [place] [facility] Crisis Hotline at 864-836-5324. [facility]: Crisis Emergency Services at [facility]: Alternative Paths at [phone] [facility]: Mental Health and Recovery Board at [phone] or [phone] [facility]: [place] [facility] at [phone] [facility]: Mental Health Crisis Services at [phone] or Self-injury: 0-407-[phone] ( ) Where should I go for CARE? [email or web address] PRIMARY CARE -Contact your Primary Care Provider (PCP) if you have any new health concerns. They know your health history best. -Unless you are experiencing a life-threatening emergency, contact your primary care provider first. Most offices offer same day appointments See your PCP for wellness visits, sports physicals, to monitor chronic health conditions and for acute issues that do not require an emergency department visit. Keep any regular appointments that your PCP recommends. [facility] ONLINE (Patients ages 2 years and up) See a provider live within minutes from the comfort of your home (or work) using your smartphone, tablet or laptop. Allergies (seasonal) Asthma (adults only) Back strains and sprains (adults only) Bronchitis (adults only) Conjunctivitis (pink eye) Cold, cough & flu symptoms Minor arevalo or cuts Painful urination and urinary tract infections (adults only) Rashes Sinus infections Upper respiratory illness Vaginal symptoms (itching, discharge) Minor injuries -Low-cost, rhm-te-jtptoa option (insurance may cover) [facility] (Patients ages 2 years and up) When you should head to Express Care Cold, cough & flu symptoms Sinus infection Earache Sore throat Conjunctivitis (pink eye) Skin rashes (poison lois, ringworm, shingles, scabies, impetigo) Minor aches and pains (without serious injury) Headaches Blood pressure checks Urinary tract infections Sexually transmitted infections Nausea, vomiting Diarrhea Minor injuries (sprains, strains, minor joint pain) Insect bites & stings (including tick bites) Minor arevalo Skin injuries not requiring stitches Sports physicals -[facility] is not the right choice for wounds needing stitches or excessive bleeding! -Lower-cost option (most insurances are accepted) URGENT CARE (Patients ages 6 months and up) When you should to Urgent Care For any of the 17 types of conditions treated by our [facility] (see panel above), plus: Imaging Stitches EKGs -Physician staffed or cushion builder 14/03 -Higher wzo-cf-oiklgo cost (most insurances are accepted) EMERGENCY DEPARTMENT When you need to go to the Emergency Department Accidents (falls, car crashes) Chest pain Coughing up or vomiting blood Drug overdose Prolonged high fever (not relieved by medication) Head injury Injuries caused by violence & major trauma Life-threatening conditions Loss of consciousness Poisoning Severe, persistent abdominal pain Severe arevalo Severe headache Shortness of breath Stroke symptoms (facial drooping, arm weakness, speech difficulties) Suicidal feelings Uncontrolled or excessive bleeding -The emergency department is a busy place! Longer wait times are common, If your condition isn't life-threatening, know that your insurance company could deny payment. Consider Express Care or call your primary care physician's office and ask for a same-day appointment. -In an emergency, call 911 or go to the nearest emergency department. -Highest bvn-jl-xylefh cost [facility] (Patients ages to 18 years) Location: [facility] at [address] [place], [place] [address] Hours: Tuesday-Tuesday from 1pm-5pm (excluding holidays) [email or web address] The Pediatric [facility] In [facility] is designed to provide parents with quick access to medical care for common health problems for children. When your child is sick with a cold or has an ear infection, you can get walk in convenience and the treatment your child needs as soon as possible from board certified physicians, nurse practitioners and physicians assistants. -No appointment is necessary. -Patients will check in on first floor upon arrival We see for the following medical conditions: Allergies Cough, Cold or Flu Symptoms Constipation Earache Fever Insect Bites and Stings Minor aches and pains Minor arevalo Minor injuries (sprains and strains) Nausea, vomiting Diarrhea [place] eye Rash Sexually Transmitted Infections Sinus Infection Skin Injuries not requiring stitches Skin infections (cellulitis) Sore throat Urinary Tract Infections Wheezing without breathing difficulty documented in this encounter [facility] 04-25-2024 Note HNO ID: [id number] Author: GARCIA DOMINGO MD Service: ? Author Type: Physician Type: Progress Notes Filed: 05/10/2024 15:01 Note Text: PEDIATRIC FOLLOW UP VISIT Romi Pyle is a 18 year old female who presents with anxiety for follow up visit. Currently taking Sertraline 75 mg. The medication is helping dramatically. She feels like things are going "really good". She can't explain the difference she just feels like good things have happened because her mindset is better. She has two jobs now and she has more energy to do things. Current symptoms include anxious feelings and feelings of inferiority. She is not seeing a counselor at the moment, but she does want to look into that. She has the intention to set it up. History was obtained from: patient PAST MEDICAL HISTORY No date: NEGATIVE MEDICAL HISTORY ROS for medication side effects: Abdominal pain: no Appetite problems: no Drowsiness: no Sleep problems: no Headaches: no Depression: no Suicidal ideation: no Agitation: no Lisa: no Tremors: yes - at times, feels like her heart is racing, unsure if this is a medication side effect. Weight change: no ADDITIONAL CONCERNS: None PHYSICAL EXAM: BP 126/70 Pulse 84 Temp 37.3 ?C (99.1 ?F) (Temporal Artery) Resp 16 Ht 158.3 cm (5' 2.32") Wt 54.2 kg (119 lb 7.8 oz) LMP 02/23/2024 (Approximate) BMI 21.63 kg/m? Blood pressure %adrien are not available for patients who are 18 years or older. EXAM: APPEARANCE Well appearing, alert, in no acute distress, well-hydrated, well nourished. PSYCH: Posture and motor behavior: normal posture and motor behavior Dress, grooming, personal hygiene: normal dress and grooming Facial expression: good eye contact Speech: normal speech Mood: cheerful Coherency and relevance of thought: normal thought processes Memory: normal memory ASSESSMENT AND PLAN: Encounter Diagnosis ICD-10-CM 1. Anxiety with depression F41.8 sertraline (ZOLOFT) 50 mg tablet sertraline (ZOLOFT) 25 mg tablet 18 year old female with anxiety and depression with optimization of symptoms and without significant medication side effects. 04/25/2024 PHQ-A Scores Severity Score 5 (Minimal depression) PHQ-A Score Interpretation 0 - 4 No or minimal depression 5 - 9 Minimal depression 10 - 14 Moderate depression 15 - 19 Moderately severe depression 20 - 27 Severe depression 01/23/2024 02/20/2024 04/25/2024 JERRY - 7 SCORES Score 15 5 4 PHQ-A Score: 5 JERRY-7 Score: 4 - Continue current medication. - Recommend establishing with a counselor - Follow up in 2 months for med follow up Garcia Domingo MD I spent a total of 31 minutes on the date of the service which included preparing to see the patient, [id number] patient care, completing clinical documentation, obtaining and/or reviewing separately obtained history, counseling and educating the patient/family/caregiver, and ordering medications, tests, or procedures. [facility] 04-25-2024 History of Presen t illness Narrative Images from the original note were not included. PEDIATRIC FOLLOW UP VISIT Romi Pyle is a 18 year old female who presents with anxiety for follow up visit. Currently taking Sertraline 75 mg. The medication is helping dramatically. She feels like things are going "really good". She can't explain the difference she just feels like good things have happened because her mindset is better. She has two jobs now and she has more energy to do things. Current symptoms include anxious feelings and feelings of inferiority. She is not seeing a counselor at the moment, but she does want to look into that. She has the intention to set it up. History was obtained from: patient PAST MEDICAL HISTORY No date: NEGATIVE MEDICAL HISTORY ROS for medication side effects: Abdominal pain: no Appetite problems: no Drowsiness: no Sleep problems: no Headaches: no Depression: no Suicidal ideation: no Agitation: no Lisa: no Tremors: yes - at times, feels like her heart is racing, unsure if this is a medication side effect. Weight change: no ADDITIONAL CONCERNS: None PHYSICAL EXAM: BP 126/70 Pulse 84 Temp 37.3 C (99.1 F) (Temporal Artery) Resp 16 Ht 158.3 cm (5' 2.32") Wt 54.2 kg (119 lb 7.8 oz) LMP 02/23/2024 (Approximate) BMI 21.63 kg/m Blood pressure %adrien are not available for patients who are 18 years or older. EXAM: APPEARANCE Well appearing, alert, in no acute distress, well-hydrated, well nourished. PSYCH: Posture and motor behavior: normal posture and motor behavior Dress, grooming, personal hygiene: normal dress and grooming Facial expression: good eye contact Speech: normal speech Mood: cheerful Coherency and relevance of thought: normal thought processes Memory: normal memory ASSESSMENT & PLAN: Encounter Diagnosis ICD-10-CM 1. Anxiety with depression F41.8 sertraline (ZOLOFT) 50 mg tablet sertraline (ZOLOFT) 25 mg tablet 18 year old female with anxiety and depression with optimization of symptoms and without significant medication side effects. 04/25/2024 PHQ-A Scores Severity Score 5 (Minimal depression) PHQ-A Score Interpretation 0 - 4 No or minimal depression 5 - 9 Minimal depression 10 - 14 Moderate depression 15 - 19 Moderately severe depression 20 - 27 Severe depression 01/23/2024 02/20/2024 04/25/2024 JERRY - 7 SCORES Score 15 5 4 PHQ-A Score: 5 JERRY-7 Score: 4 - Continue current medication. - Recommend establishing with a counselor - Follow up in 2 months for med follow up Garcia Domingo MD I spent a total of 31 minutes on the date of the service which included preparing to see the patient, [id number] patient care, completing clinical documentation, obtaining and/or reviewing separately obtained history, counseling and educating the patient/family/caregiver, and ordering medications, tests, or procedures. documented in this encounter [facility] 04-20-2024 Telephone encounter Note Claudio villaseñor. Maggie Morris MA [facility] 04-19-2024 Telephone encounter Note Patient calling to ask if it's okay for her to take OTC Cetirizine for allergies with Sertraline? Alice Roca RN [facility] 02-20-2024 Note HNO ID: [id number] Author: GARCIA DOMINGO MD Service: ? Author Type: Physician Type: Progress Notes Filed: 03/07/2024 18:19 Note Text: PEDIATRIC FOLLOW UP VISIT Romi Pyle is a 18 year old female who presents with depressed mood and anxiety for follow up visit. Currently taking Sertraline 25 mg since a month ago. The medication is helping some. She thinks things have been pretty "good". There are still some days that she struggles but she definitely feels a difference and she feels more motivated and not everything is dreadful. Current symptoms include anxious feelings and change in appetite. She denies suicidal ideation. She was taking the medicine at bedtime but couldn't fall asleep so now she takes it in the morning. She doesn't feel as hungry as she used to When she stopped the medication last time it was because she thought it wasn't working anymore and it must've never worked. Her dizziness isn't really a big issue anymore but it is about the same. She is now wondering if it was anxiety related. History was obtained from: patient and EMR PAST MEDICAL HISTORY Diagnosis Date NEGATIVE MEDICAL HISTORY ROS for medication side effects: Abdominal pain: no Appetite problems: yes, slightly less Drowsiness: no Sleep problems: no as long as she takes it in the morning Headaches: no Depression: no Suicidal ideation: no Agitation: no Lisa: no Tremors: no Weight change: no ADDITIONAL CONCERNS: None PHYSICAL EXAM: BP 120/64 Pulse 80 Temp 37.3 ?C (99.2 ?F) (Temporal Artery) Resp 16 Wt 52.9 kg (116 lb 11.2 oz) LMP 02/15/2024 (Approximate) Blood pressure %adrien are not available for patients who are 18 years or older. EXAM: APPEARANCE Well appearing, alert, in no acute distress, well-hydrated, well nourished. PSYCH: Posture and motor behavior: normal posture and motor behavior Dress, grooming, personal hygiene: normal dress and grooming Facial expression: good eye contact Speech: normal speech Mood: anxious Coherency and relevance of thought: normal thought processes Memory: normal memory ASSESSMENT AND PLAN: Encounter Diagnosis ICD-10-CM 1. Anxiety with depression F41.8 sertraline (ZOLOFT) 50 mg tablet 18 year old female with anxiety and depression with improvement of symptoms and without significant medication side effects. Based on JERRY-7 Score: 5 and interview, clarified answers and no concerns identified. 06/16/2022 01/23/2024 02/20/2024 JERRY - 7 SCORES Score 2 15 5 - Increase dose to 50mg Zoloft daily. - Recommend counseling - Follow up in 2-4 weeks since medication or dose changed Garcia Domingo MD [facility] 02-20-2024 History of Presen t illness Narrative PEDIATRIC FOLLOW UP VISIT Romi Pyle is a 18 year old female who presents with depressed mood and anxiety for follow up visit. Currently taking Sertraline 25 mg since a month ago. The medication is helping some. She thinks things have been pretty "good". There are still some days that she struggles but she definitely feels a difference and she feels more motivated and not everything is dreadful. Current symptoms include anxious feelings and change in appetite. She denies suicidal ideation. She was taking the medicine at bedtime but couldn't fall asleep so now she takes it in the morning. She doesn't feel as hungry as she used to When she stopped the medication last time it was because she thought it wasn't working anymore and it must've never worked. Her dizziness isn't really a big issue anymore but it is about the same. She is now wondering if it was anxiety related. History was obtained from: patient and EMR PAST MEDICAL HISTORY Diagnosis Date NEGATIVE MEDICAL HISTORY ROS for medication side effects: Abdominal pain: no Appetite problems: yes, slightly less Drowsiness: no Sleep problems: no as long as she takes it in the morning Headaches: no Depression: no Suicidal ideation: no Agitation: no Lisa: no Tremors: no Weight change: no ADDITIONAL CONCERNS: None PHYSICAL EXAM: BP 120/64 Pulse 80 Temp 37.3 C (99.2 F) (Temporal Artery) Resp 16 Wt 52.9 kg (116 lb 11.2 oz) LMP 02/15/2024 (Approximate) Blood pressure %adrien are not available for patients who are 18 years or older. EXAM: APPEARANCE Well appearing, alert, in no acute distress, well-hydrated, well nourished. PSYCH: Posture and motor behavior: normal posture and motor behavior Dress, grooming, personal hygiene: normal dress and grooming Facial expression: good eye contact Speech: normal speech Mood: anxious Coherency and relevance of thought: normal thought processes Memory: normal memory ASSESSMENT & PLAN: Encounter Diagnosis ICD-10-CM 1. Anxiety with depression F41.8 sertraline (ZOLOFT) 50 mg tablet 18 year old female with anxiety and depression with improvement of symptoms and without significant medication side effects. Based on JERRY-7 Score: 5 and interview, clarified answers and no concerns identified. 06/16/2022 01/23/2024 02/20/2024 JERRY - 7 SCORES Score 2 15 5 - Increase dose to 50mg Zoloft daily. - Recommend counseling - Follow up in 2-4 weeks since medication or dose changed Garcia Domingo MD documented in this encounter [facility] 01-23-2024 History of Presen t illness Narrative PEDIATRIC SICK VISIT SUBJECTIVE: Romi Pyle is a 18 year old accompanied by mother. Her dizziness has gotten better but still comes in episodes that last a minute or a few seconds. She is having episodes maybe once a week. The symptom she is most concerned about is the fatigue. She is wondering about vitamin deficiency and her mental health. She stopped taking her anxiety medication in November last year. She thinks lately things are getting harder while off the medication. She feels like she has a mixture of anxiety and depression at the moment. History was obtained from: mother and patient HISTORY: ACTIVE PROBLEM LIST Malaise and Fatigue Vitamin D Deficiency PAST MEDICAL HISTORY Diagnosis Date NEGATIVE MEDICAL HISTORY PAST SURGICAL HISTORY Procedure Laterality Date NONE Allergies: ALLERGIES No Known Allergies Medications: propylene glycoL (SYSTANE BALANCE) 0.6 % drop Use 1 Drop in both eyes two times a day. tretinoin (RETIN-A) 0.01 % gel APPLY A PEA SIZED GLOBULE DIVIDED UP DIRECTED TO ACNE AFFECTED AREAS OF FACE EACH EVENING. LEAVE ON OVERNIGHT TOLERATED sertraline (ZOLOFT) 25 mg tablet Take 1 tablet by mouth once daily. OBJECTIVE: BP 112/72 Pulse 92 Temp 37.1 C (98.8 F) (Temporal Artery) Resp 16 Wt 53.6 kg (118 lb 3.2 oz) LMP 01/09/2024 (Approximate) General: alert and active in no apparent distress Eyes: conjunctiva clear Ears: TMs translucent bilaterally, normal landmarks noted Nose: no rhinorrhea, no mucosal edema OP: no lesions, no erythema Neck: supple, no adenopathy Lungs: clear to auscultation bilaterally, good air exchange CVS: Normal rate, regular rhythm, no murmur Skin: No rashes, lesions or skin changes ASSESSMENT/PLAN: Encounter Diagnosis ICD-10-CM 1. Episode of dizziness R42 CONSULT TO PEDS NEUROLOGY 2. Blurry vision, left eye H53.8 CONSULT TO PEDS NEUROLOGY 3. Anxiety with depression F41.8 sertraline (ZOLOFT) 25 mg tablet 4. Malaise and fatigue R53.81 COMPLETE BLOOD COUNT AND DIFFERENTIAL R53.83 VITAMIN D 25 HYDROXY IRON AND TIBC FERRITIN THYROID STIMULATING HORMONE T4 FREE/FREE THYROXINE COMPREHENSIVE METABOLIC PANEL - Continue Zoloft 25mg daily - Labs as ordered to evaluate Vitamin D level, blood counts, iron studies and thyroid studies. - Will refer to Neurology due to continued dizziness and L sided blurry vision. Garcia Domingo MD documented in this encounter [facility] 01-23-2024 Instructions Garcia Domingo MD - 01/23/2024 7:39 PM EDT 5 to Go!TM Healthy Kids Inside & Out 5 Eat FIVE fruits and veggies a day 4 Give and get FOUR compliments a day 3 Consume THREE calcium products a day 2 Limit media time to TWO hours a day 1 Get at least ONE hour of exercise a day 0 Consume ZERO sugar-sweetened drinks Go! Be healthy, inside and out! [email or web address] documented in this encounter [facility] 12-09-2023 History of Presen t illness Narrative HPI Romi Pyle is a 18 year old female who presents with lightheadedness and headaches. Patient is seen in consultation for Dr Domingo.. The patient complains of being lightheaded patient denies any balance issues or true vertigo patient has no other otologic symptoms. Patient also complained of a dull headache mainly on the left side patient has no other nasal symptoms ROS General Weight loss: No Fatigue: No Night sweats:No Cardiac Chest pain:No Fast heart rate:No Swelling in the feet:No Respiratory Short of breath:No Cough:No Wheezing:No Gastrointestinal Nausea:No Vomiting:No Indigestion:No Past medical history, family history, and social history reviewed. PE LMP 10/08/2023 General: Patient is awake, alert, NAD. Voice is normal. Skin: normal Eyes: Extraocular motion and Gaze is normal. Ears: Right external auditory canal is normal. TMJ: normal. Right tympanic membranes normal. Left external auditory canal is normal. Left tympanic membrane normal. Nose: Septum is normal. Turbinates are normal. Nasopharynx:normal Oral Cavity/Oropharynx: Lips normal Dentition normal Tongue normal. Tonsils normal. Palate and uvula normal. Pharynx posterior normal Hypopharynx: Base of tongue normal Pyriform sinus normal. Larynx: Vocal cords normal. Epiglottis normal. Post cricoid normal. Salivary glands: Parotid normal. Submandibular and sublingual normal. Thyroid: normal. Lymphatic/Neck: Lymph nodes normal. Neurologic: Facial nerve normal. ASSESSMENT/PLAN: 1. Dizziness - ICD9: 780.4, ICD10: R42 (primary diagnosis) 2. Recurrent headache - ICD9: 784.0, ICD10: R51.9 Recommend possibly referral to neurology just because I do not feel her dizziness is in any way vestibular she is somewhat vague in her descriptions but does not appear to be a vestibular issue. Cleveland Hamlin MD Findings will be communicated to the referring physician via mail or electronic medical record. documented in this encounter [facility] 11-24-2023 Instructions Tanesha Hu, OD - 11/24/2023 10:43 AM EDT ASSESSMENT/PLAN: 1. Recurrent headache - ICD9: 784.0, ICD10: R51.9 (primary diagnosis) Continue to monitor. Discussed journalling her headaches to find a possible association. 2. Superficial keratitis of both eyes - ICD9: 370.20, ICD10: H16.103 Current Ophthalmic Meds propylene glycoL (SYSTANE BALANCE) 0.6 % drop Use 1 Drop in both eyes two times a day. 3. Blurry vision, left eye - ICD9: 368.8, ICD10: H53.8 4. Hyperopia, bilateral - ICD9: 367.0, ICD10: H52.03 5. Regular astigmatism, bilateral - ICD9: 367.21, ICD10: H52.223 Suggested glasses to be worn time study analyst until her follow up. Return 4-6 weeks for dry eye and glasses follow up documented in this encounter [facility] 11-24-2023 History of Presen t illness Narrative ASSESSMENT/PLAN: 1. Recurrent headache - ICD9: 784.0, ICD10: R51.9 (primary diagnosis) Continue to monitor. Discussed journalling her headaches to find a possible association. 2. Superficial keratitis of both eyes - ICD9: 370.20, ICD10: H16.103 Current Ophthalmic Meds propylene glycoL (SYSTANE BALANCE) 0.6 % drop Use 1 Drop in both eyes two times a day. 3. Blurry vision, left eye - ICD9: 368.8, ICD10: H53.8 4. Hyperopia, bilateral - ICD9: 367.0, ICD10: H52.03 5. Regular astigmatism, bilateral - ICD9: 367.21, ICD10: H52.223 Suggested glasses to be worn time study analyst until her follow up. Return 4-6 weeks for dry eye and glasses follow up Tanesha Hu OD documented in this encounter [facility] 10-17-2023 Instructions Garcia Domingo MD - 10/17/2023 3:56 PM EST 5 to Go!TM Healthy Kids Inside & Out 5 Eat FIVE fruits and veggies a day 4 Give and get FOUR compliments a day 3 Consume THREE calcium products a day 2 Limit media time to TWO hours a day 1 Get at least ONE hour of exercise a day 0 Consume ZERO sugar-sweetened drinks Go! Be healthy, inside and out! [email or web address] documented in this encounter [facility] 10-17-2023 History of Presen t illness Narrative PEDIATRIC SICK VISIT SUBJECTIVE: Romi Pyle is a 18 year old accompanied by father. She complains of intermittent headaches for the past 2 weeks. She has some blurring around lights when she looks at them but denies photosensitivity. She also has dizziness which occurs with and without the headaches. She can hear herself breathe on the left side. Her left eye has blurry vision. Right now is not as severe but sometimes when she wakes up it is severe and her depth perception is weird. She gets blurry vision with light. She gets anxious about it which may make the feeling/symptoms worse. She has been drinking water and eating regularly. When she turns her head to the right she feels "bouncy" but she is able to do it to the left. She denies nausea but sometimes her muscles are tightening near her stomach (may be anxiety/cramps). When she gets sick she usually gets issues with her sinuses. She denies current congestion. She feels "disabled" and she isn't sure if that can be contributing. She feels fatigued and feels like she would feel if she is getting sick but not achey. She denies fever pains. She had an episode like this 2 years ago which resolved on its own. It was around this time of the year (August). History was obtained from: father and patient HISTORY: ACTIVE PROBLEM LIST Malaise and Fatigue Vitamin D Deficiency PAST MEDICAL HISTORY Diagnosis Date NEGATIVE MEDICAL HISTORY PAST SURGICAL HISTORY Procedure Laterality Date NONE Allergies: ALLERGIES No Known Allergies Medications: tretinoin (RETIN-A) 0.01 % gel APPLY A PEA SIZED GLOBULE DIVIDED UP DIRECTED TO ACNE AFFECTED AREAS OF FACE EACH EVENING. LEAVE ON OVERNIGHT TOLERATED sertraline (ZOLOFT) 25 mg tablet Take 1 tablet by mouth once daily. doxycycline monohydrate (MONODOX) 100 mg capsule TAKE 1 CAPSULE BY MOUTH ONCE DAILY INCREASE DOSE DIRECTED FOR MONTHLY FLARES TO TWICE PER DAY FOR 7 DAYS EACH MONTH TOLERATED OBJECTIVE: BP 126/78 Pulse 92 Temp 37.2 C (99 F) (Temporal Artery) Resp 12 Wt 50.2 kg (110 lb 9.6 oz) LMP 10/08/2023 General: alert and active in no apparent distress Eyes: conjunctiva clear, PERRL Ears: TMs translucent bilaterally, normal landmarks noted Nose: no rhinorrhea, no mucosal edema OP: no lesions, no erythema Neck: supple, no adenopathy Lungs: clear to auscultation bilaterally, good air exchange CVS: Normal rate, regular rhythm, no murmur Skin: No rashes, lesions or skin changes ASSESSMENT/PLAN: Encounter Diagnosis ICD-10-CM 1. Blurry vision, left eye H53.8 CONSULT TO OPHTHALMOLOGY 2. Recurrent headache R51.9 CONSULT TO OPHTHALMOLOGY CONSULT TO ENT 3. Vestibular disequilibrium involving left inner ear H83.2X2 meclizine (ANTIVERT) 12.5 mg tab CONSULT TO ENT - Differential discussed with patient including BPPV, which was suspected in Aug 2020. Recommended ENT evaluation. Antivert script given. Patient didn't take this regularly before because she didn't understand what it would help with. - Will refer to ophtho given vision changes. - Since headaches have only occurred for the past 2 weeks, more concerned with headache being secondary to the dizziness/vision changes. Garcia Domingo MD I spent a total of 31 minutes on the date of the service which included preparing to see the patient, chfu-[id number] patient care, completing clinical documentation, obtaining and/or reviewing separately obtained history, performing a medically appropriate examination, counseling and educating the patient/family/caregiver, and ordering medications, tests, or procedures. documented in this encounter [facility] 10-14-2023 Miscellaneous Notes Call transferred from [facility]. Patient's father on the phone wanting to schedule an appointment for patient for ongoing chronic headaches. Patient reports headaches are getting more frequent and concerned that something may be wrong and was requesting an MRI. I was unable to triage as patient is not with father. She wanted father to call on her behalf for an appointment. An appointment was scheduled with PCP but advised that if patient develops a severe headache (such as the worst headache of her life), loss or double vision, stiff neck or fever, should be evaluated at ER. Father voiced understanding. Reason for Disposition Headache is a chronic symptom (recurrent or ongoing AND present > 4 weeks) Answer Assessment - Initial Assessment Questions 1. LOCATION: "Where does it hurt?" unsure 2. ONSET: "When did the headache start?" (Minutes, hours or days) Chronic, has been going on for awhile 3. PATTERN: "Does the pain come and go, or has it been constant since it started?" 4. SEVERITY: "How bad is the pain?" and "What does it keep you from doing?" (e.g., Scale 1-10; mild, moderate, or severe) - MILD (1-3): doesn't interfere with normal activities - MODERATE (4-7): interferes with normal activities or awakens from sleep - SEVERE (8-10): excruciating pain, unable to do any normal activities *No Answer* 5. RECURRENT SYMPTOM: "Have you ever had headaches before?" If Yes, ask: "When was the last time?" and "What happened that time?" *No Answer* 6. CAUSE: "What do you think is causing the headache?" *No Answer* 7. MIGRAINE: "Have you been diagnosed with migraine headaches?" If Yes, ask: "Is this headache similar?" *No Answer* 8. HEAD INJURY: "Has there been any recent injury to the head?" *No Answer* 9. OTHER SYMPTOMS: "Do you have any other symptoms?" (fever, stiff neck, eye pain, sore throat, cold symptoms) *No Answer* 10. : "Is there any chance you are ?" "When was your last menstrual period?" *No Answer* Protocols used: [id number] documented in this encounter [facility] 12-20-2022 History of Presen t illness Narrative Radiology Service Progress Note PATIENT NAME: Romi Pyle DATE OF SERVICE: December 20, 2022 TIME: 1:53 PM PATIENT IDENTITY VERIFICATION COMPLETED USING TWO (2) IDENTIFIERS: Name and Date of confirmed by patient verbally. FALL SCREENING: Has the patient had 2 falls in the last year or 1 fall with injury or currently using an Ambulatory Assistive Device (Walker, Cane, Wheelchair, Crutches, etc.)? No PATIENT GENDER DATA: Female. status: : No status: NO. PATIENT RELEVANT IMPLANT DATA REVIEWED: Yes RADIOLOGY DEPARTMENT: General X-ray: Exam(s) Completed: Lower Extremity X-Ray(s): Knee, AP / Lat / Tunne / Merchant Left and Wt. Bearing PERIPHERAL IV DATA: Not applicable SIGNED BY: RT Sushila(R) December 20, 2022 1:53 PM documented in this encounter [facility] 12-20-2022 History of Presen t illness Narrative Patient presents with: Knee Pain: left, fell x 3 days HPI: Knee pain: Duration: fell roller skating 3 days ago Location: anterior left knee Character: pressure Radiation: No. Aggravating: bending, standing too long Relieving: walking with leg straight Pain relievers: none Associated: popping, stiffness Pertinent negatives: Denies swelling MEDICATIONS: sertraline (ZOLOFT) 25 mg tablet Take 1 tablet by mouth once daily. tretinoin (RETIN-A) 0.01 % gel APPLY A PEA SIZED GLOBULE DIVIDED UP DIRECTED TO ACNE AFFECTED AREAS OF FACE EACH EVENING. LEAVE ON OVERNIGHT TOLERATED doxycycline monohydrate (MONODOX) 100 mg capsule TAKE 1 CAPSULE BY MOUTH ONCE DAILY INCREASE DOSE DIRECTED FOR MONTHLY FLARES TO TWICE PER DAY FOR 7 DAYS EACH MONTH TOLERATED ALLERGIES: ALLERGIES No Known Allergies VITALS: BP 132/80 Pulse 86 Temp 36.5 C (97.7 F) Resp 16 Wt 57.6 kg (127 lb) LMP 06/15/2022 (Exact Date) SpO2 100% PE: Pleasant, in no acute distress. Accompanied by her mother. Holds left leg extended while sitting. KNEE: left compared to right. Abrasion over the patella. No erythema, effusion, or deformity. ROM: able to reach 90 degrees flexion and full extension. Tender patella. No crepitus. No joint line tenderness. Stable to varus and valgus strain. Negative anterior drawer test. Negative posterior drawer test. Limping gait. ASSESSMENT/PLAN: 1. Acute pain of left knee - ICD9: 719.46, ICD10: M25.562 - XR KNEE GENERAL 4V AP BOTH/PA BOTH/LAT/MERC LEFT - no acute fractures or lytic lesions. Radiology interpretation is pending. The patient will be notified if there is a significant finding in the report not discussed at the time of the visit. Knee contusion. Ligaments are intact on exam. She is walking well enough currently without crutches. Follow up with orthopedics if not improving or signs of internal derangement such as locking, giving out, crepitus, or effusion. Stoney Umaña MD documented in this encounter [facility] 06-16-2022 History of Presen t illness Narrative SUBJECTIVE: Romi Pyle is an 17 year old female who presents for followup of of depression and anxiety treatment. Current symptoms include anxious feelings, difficulty concentrating, and impaired memory. She states she is more motivated about living. She is finding it easier to be in public as well. Rates overall mood 8 on scale of 1-10. She has been taking Zoloft 25mg for the past month. She feels the medication is helping. She is now taking the medication in the morning which works better for her. Grandmother has noticed a difference as well and thinks she is back to her old self. Social History Tobacco Use Smoking status: Never Passive exposure: Never Smokeless tobacco: Never Vaping Use Vaping Use: Never used Negative except for as listed above OBJECTIVE: BP 122/74 Pulse 82 Temp 36.9 C (98.4 F) (Temporal Artery) Resp 16 Wt 57.2 kg (126 lb 1 oz) LMP 06/15/2022 (Exact Date) EXAM: APPEARANCE Well appearing, alert, in no acute distress, well-hydrated, well nourished. PSYCH: Posture and motor behavior: normal posture and motor behavior Dress, grooming, personal hygiene: normal dress and grooming Facial expression: good eye contact Speech: normal speech Mood: cheerful Coherency and relevance of thought: normal thought processes Memory: normal memory ASSESSMENT/PLAN: Depression and Anxiety improved Per orders. Psychotherapy recommended: Yes. Return visit in 3-6 month(s). Patient Education: Reviewed concept of depression and anxiety as biochemical imbalance of neurotransmitters and rationale for treatment. Instructed patient to contact office or [id number] after-hours promptly should condition worsen or any new symptoms appear. Garcia Domingo MD documented in this encounter [facility] 05-17-2022 Instructions Garcia Domingo MD - 05/17/2022 3:53 PM EDT YOU SHOULD SEEK MEDICAL ATTENTION IMMEDIATELY FOR YOUR CHILD, AT THE NEAREST EMERGENCY DEPARTMENT OR BY CALLING 911, IF ANY OF THE FOLLOWING OCCURS: Your child has new or worsening thoughts of harming him/herself (suicidal thoughts) or harming others. Your child does not feel safe at home. You are concerned about your child s ability to remain safe at home. If your child has thoughts of hurting herself/himself, you can: Call 988. 988 is the three-digit, nationwide phone number to connect directly to the [place] Suicide and Crisis Lifeline. [email or web address]e.or g Text 4hblh to 157974 Call the crisis hotline for: [facility]: Mobile Crisis/Frontline Services at [phone] [facility]: [place] [facility] Crisis Hotline at 826-339-7084. [facility]: Crisis Emergency Services at [facility]: Alternative Paths at [phone] [facility]: Mental Health and Recovery Board at [phone] or [phone] [facility]: [place] at [phone] [facility]: Mental Health Crisis Services at [phone] or Self-injury: 4-269-BBIPTIWO ( ) Where should I go for CARE? [email or web address] go PRIMARY CARE -Contact your Primary Care Provider (PCP) if you have any new health concerns. They know your health history best. -Unless you are experiencing a life-threatening emergency, contact your primary care provider first. Most offices offer same day appointments See your PCP for wellness visits, sports physicals, to monitor chronic health conditions and for acute issues that do not require an emergency department visit. Keep any regular appointments that your PCP recommends. [facility] ONLINE (Patients ages 2 years and up) See a provider live within minutes from the comfort of your home (or work) using your smartphone, tablet or laptop. Allergies (seasonal) Asthma (adults only) Back strains and sprains (adults only) Bronchitis (adults only) Conjunctivitis (pink eye) Cold, cough & flu symptoms Minor arevalo or cuts Painful urination and urinary tract infections (adults only) Rashes Sinus infections Upper respiratory illness Vaginal symptoms (itching, discharge) Minor injuries -Low-cost, fuz-jx-bmlgwx option (insurance may cover) [facility] (Patients ages 2 years and up) When you should head to Express Care Cold, cough & flu symptoms Sinus infection Earache Sore throat Conjunctivitis (pink eye) Skin rashes (poison lois, ringworm, shingles, scabies, impetigo) Minor aches and pains (without serious injury) Headaches Blood pressure checks Urinary tract infections Sexually transmitted infections Nausea, vomiting Diarrhea Minor injuries (sprains, strains, minor joint pain) Insect bites & stings (including tick bites) Minor arevalo Skin injuries not requiring stitches Sports physicals -[facility] is not the right choice for wounds needing stitches or excessive bleeding! -Lower-cost option (most insurances are accepted) URGENT CARE (Patients ages 6 months and up) When you should to Urgent Care For any of the 17 types of conditions treated by our [facility] (see panel above), plus: Imaging Stitches EKGs -Physician staffed or cushion builder 14/03 -Higher mru-yx-tvnvzh cost (most insurances are accepted) EMERGENCY DEPARTMENT When you need to go to the Emergency Department Accidents (falls, car crashes) Chest pain Coughing up or vomiting blood Drug overdose Prolonged high fever (not relieved by medication) Head injury Injuries caused by violence & major trauma Life-threatening conditions Loss of consciousness Poisoning Severe, persistent abdominal pain Severe arevalo Severe headache Shortness of breath Stroke symptoms (facial drooping, arm weakness, speech difficulties) Suicidal feelings Uncontrolled or excessive bleeding -The emergency department is a busy place! Longer wait times are common, If your condition isn't life-threatening, know that your insurance company could deny payment. Consider Express Care or call your primary care physician's office and ask for a same-day appointment. -In an emergency, call 911 or go to the nearest emergency department. -Highest ifa-hx-qbtvcf cost [facility] (Patients ages to 18 years) Location: [facility] at [address] [place], [place] [address] Hours: Tuesday-Tuesday from 1pm-5pm (excluding holidays) [email or web address] The [facility] is designed to provide parents with quick access to medical care for common health problems for children. When your child is sick with a cold or has an ear infection, you can get walk in convenience and the treatment your child needs as soon as possible from board certified physicians, nurse practitioners and physicians assistants. -No appointment is necessary. -Patients will check in on first floor upon arrival We see for the following medical conditions: Allergies Cough, Cold or Flu Symptoms Constipation Earache Fever Insect Bites and Stings Minor aches and pains Minor arevalo Minor injuries (sprains and strains) Nausea, vomiting Diarrhea [place] eye Rash Sexually Transmitted Infections Sinus Infection Skin Injuries not requiring stitches Skin infections (cellulitis) Sore throat Urinary Tract Infections Wheezing without breathing difficulty documented in this encounter [facility] 05-17-2022 History of Presen t illness Narrative SUBJECTIVE: Romi Pyle is an 16 year old female who presents for initiation of of depression and anxiety discussion/treatment. Onset of recent symptoms approximately 5 year(s) ago, getting worse for the past 3 months. Current symptoms include depressed mood, anxious feelings, anhedonia, change in appetite, hypersomnia, psychomotor retardation, fatigue, feelings of worthlessness/guilt, difficulty concentrating, hopelessness, impaired memory, and recurrent thoughts of and not existing anymore but denies suicidal ideation. Symptoms have occurred daily. Rates overall mood 3 on scale of 1-10. Grandmother notes that she goes from not wanting to talk and wanting to be alone to laughing and wanting to hang out with her brother. She admits to mood swings. Previous treatment modalities: individual counseling with a licensed counselor. Depression risk factors: negative life event (thinking about school restarting) Social History Tobacco Use Smoking status: Never Passive exposure: Never Smokeless tobacco: Never Vaping Use Vaping Use: Never used Negative except for as listed above OBJECTIVE: BP 110/68 Pulse 84 Temp 36.4 C (97.6 F) (Temporal Artery) Resp 18 Ht 153.7 cm (5' 0.51") Wt 57.6 kg (127 lb) LMP 05/10/2022 (Approximate) BMI 24.39 kg/m PhQ-9 (done on 04/29): 19 (+) SCARED: Total = 51 (+) Panic = 15 (+) Generalized = 13 (+) Separation = 3 Social = 14 (+) School Avoidance = 6 (+) EXAM: APPEARANCE Well appearing, alert, in no acute distress, well-hydrated, well nourished. PSYCH: Posture and motor behavior: normal posture and motor behavior Dress, grooming, personal hygiene: normal dress and grooming Facial expression: good eye contact Speech: normal speech Mood: anxious Coherency and relevance of thought: normal thought processes Memory: normal memory ASSESSMENT/PLAN: Depression and Anxiety new diagnosis Per orders. Psychotherapy recommended: Yes. Return visit in 1 month(s). Patient Education: Reviewed concept of depression and anxiety as biochemical imbalance of neurotransmitters and rationale for treatment. Instructed patient to contact office or [id number] after-hours promptly should condition worsen or any new symptoms appear. Garcia Domingo MD documented in this encounter [facility] 05-17-2022 Nurse Note Screen for Child Anxiety Related Disorders (SCARED) Child Report The SCARED is a 41-item self-report anxiety inventory with possible scores ranging from 0 to 82. Higher scores indicate increasing levels of anxiety in various domains. (A score > 25 may indicate the presence of an Anxiety Disorder. Scores higher than 30 are more specific) Panic/Somatic: 15 Generalized Anxiety: 13 Separation: 3 Social: 14 School Avoidance: 6 Total Score: 51 Subscale scores indicated elevations on Panic/somatic symptoms, Generalized anxiety, Social anxiety, and School phobia. documented in this encounter [facility] 05-04-2022 Miscellaneous Notes Patient's request for medication is as follows: Requested Prescriptions Signed Prescriptions Disp Refills ferrous sulfate 325 mg (65 mg iron) tablet 30 tablet 2 Sig: Take 1 tablet by mouth daily with breakfast. Prescription(s) as above. Please process accordingly. Garcia Domingo MD pharmacy updated Alli England RN documented in this encounter [facility] 05-04-2022 Miscellaneous Notes family aware via documistichart Alli England RN unable to reach parent via telephone, documistichart message sent. Alli England RN message left for parent to call office Alli England RN Lab results show normal blood counts but signs of early iron deficiency including low ferritin. We should start her on an iron supplement and recheck her level in 3 months. Please verify pharmacy. Garcia Domingo MD documented in this encounter [facility] 04-29-2022 Instructions Garcia Domingo MD - 04/29/2022 3:51 PM EDT Images from the original note were not included. 5 to Go!TM Healthy Kids Inside & Out 5 Eat FIVE fruits and veggies a day 4 Give and get FOUR compliments a day 3 Consume THREE calcium products a day 2 Limit media time to TWO hours a day 1 Get at least ONE hour of exercise a day 0 Consume ZERO sugar-sweetened drinks Go! Be healthy, inside and out! [email or web address] Adolescent to Adult Transition Program [facility] cares about helping you and each of our adolescents and young adults make a smooth transition to adult care. If your current doctor is a well blower, we will work with you to decide the correct age for moving your care to a doctor or other provider who takes care of adults. We suggest that this move take place before age 22. Our office policy is to prepare you to move to a doctor or other provider who takes care of adults. This includes helping you find a doctor or other provider, sending medical records, and talking about any special needs with the new doctor or other provider. If your current doctor is in family medicine, [facility] will prepare you and your family for the transition to being an adult patient. You will be able to make your own healthcare decisions and will have an adult care team that meets your personal healthcare needs. At age 18, by law, we need your agreement to discuss personal health information with your family. We understand and respect that you may want to include your family in healthcare choices and will partner with you on how and when to include your family in decisions. We will make sure you know what changes to expect. We will also strive to make sure that all care team providers know your needs. We will help you find community resources and specialty care, if needed. Having your information before you come for the first time helps us be sure we do not miss any details. If joining our practice from outside [facility], we will help you request your medical record from past doctor(s) before your first visit. We will make every effort to work with your past providers to ensure a smooth transition and experience. We are always here for you. If you have any questions or concerns, please contact your primary care team or e-mail [email or web address] Got Transition is the federally funded national resource center on health care transition (HCT). Its aim is to improve transition from pediatric to adult health care through the use of evidence-driven strategies for health personal care assistant, youth, young adults, and their families. www.[employer].org https://[employer].org/resour ce/?paj-hnqqhe-aowivbd Healthy Children Ages & Stages Texting Program [employer].org is an AAP ([place] Academy of [employer]s) parenting website. It is a great resource for information. They have a new Ages & Stages texting program available to parents. Fill out the information in the link below to start getting helpful tips and resources from AAP experts right to your phone. Be sure to include your child's age so they can send you age appropriate information. https://www.[employer].org/ [place]/tips-tools/HealthyChildr dr-Ivbwayu-Dhliavo/Pages/default .aspx documented in this encounter [facility] 04-29-2022 History of Presen t illness Narrative WELL VISIT PEDIATRIC FEMALE 14-17 YRS OLD SERVICE DATE: 04/29/2022 Romi is a 16 year old female who presents today for well exam accompanied by her grandmother. SUBJECTIVE CONCERNS: no concerns Other grandmother and mother may have some mental health issues. Patient did see her counselor back in December weekly or every other week. Her counselor was at [facility]. HISTORY ACTIVE PROBLEM LIST Malaise and Fatigue - 10/22/2020 Vitamin D Deficiency - 10/22/2020 PAST MEDICAL HISTORY Diagnosis Date NEGATIVE MEDICAL HISTORY PAST SURGICAL HISTORY Procedure Laterality Date NONE ALLERGIES No Known Allergies Medications: meclizine (ANTIVERT) 12.5 mg tab Take 1-2 tablets by mouth three times daily as needed (for dizziness). cholecalciferol, vitamin D3, (VITAMIN D3 ORAL) Take by mouth. tretinoin (RETIN-A) 0.01 % gel APPLY A PEA SIZED GLOBULE DIVIDED UP DIRECTED TO ACNE AFFECTED AREAS OF FACE EACH EVENING. LEAVE ON OVERNIGHT TOLERATED doxycycline monohydrate (MONODOX) 100 mg capsule TAKE 1 CAPSULE BY MOUTH ONCE DAILY INCREASE DOSE DIRECTED FOR MONTHLY FLARES TO TWICE PER DAY FOR 7 DAYS EACH MONTH TOLERATED fluticasone (FLONASE) 50 mcg/actuation nasal spray Use 1 [place] in each nostril once daily. FAMILY HISTORY Problem Relation Age of Onset Diabetes Mother type 1 Diabetes Brother type 1 No Known Problems Maternal Grandmother Diabetes Maternal Grandfather type 1 No Known Problems Paternal Grandmother Diabetes Paternal Grandfather type 2 Social History Social History Narrative Not on file Smoking Exposure: Does your child spend a significant amount of time in the care of anyone who smokes? No School: Grade: 12th; grades A-B. Physical Activity: less than 1 hour of physical activity per day Screen Time totaling more than 2 hours of screen time per day. Safety: Pediatric SDOH - Response to gun questions 04/29/2022 Are there any guns kept in or around your home or where your child spends time? No Reviewed seat belts, smoke detectors, and sunscreen Diet: -Eats 3 meals per day and 1 snacks per day -Typical beverages include water -Fruits and vegetables are eaten with nearly every meal and eaten as snacks -# of fast food meals/week: 0 -# of days/week that family has dinner together: 7 Elimination: no concerns, normal size and consistency Dental: dental care current Sleep: -no sleep concerns Gynecological history: LMP: 04/05/2022 Cycles are regular and last 3-5 days. Dysmenorrhea: mild Heavy periods: no Substance use: none High risk behaviors: none Sexual History: Attraction: male Sexually Active: No Body image: unsatisfactory - shrugged shoulders as response Screening tools reviewed and discussed with patient/qbrssw-QXK-P and Social Determinants of Health. Please see Patient Entered Data. REVIEW OF SYSTEMS GENERAL: No fevers EYES: No vision concerns ENT: No hearing concerns RESPIRATORY: Negative for cough, wheezing or respiratory distress CARDIOVASCULAR: Negative for chest pain, syncope, lightheadness or heart racing SKIN: Negative for lesions, rash, and itching ENDOCRINE: No growth concerns VISUAL ACUITY: Today's exam: Vision Correction? No vision correction: RIGHT EYE: 20/20 LEFT EYE: 20/ 20 OBJECTIVE Physical Exam: BP 108/68 Pulse 92 Temp 37.2 C (98.9 F) (Temporal Artery) Resp 16 Ht 153.6 cm (5' 0.47") Wt 56.2 kg (124 lb) LMP 04/05/2022 (Approximate) BMI 23.84 kg/m Blood pressure percentiles are 54 % systolic and 69 % diastolic based on the 2017 AAP Clinical Practice Guideline. This reading is in the normal blood pressure range. 78 %ile (Z= 0.78) based on CDC (Girls, 2-20 Years) BMI-for-age based on BMI available as of 04/29/2022. Last BMI: Wt: 58.2 kg (128 lb 6.4 oz) (66 %, Z= 0.40)* BMI: 24.78 kg/(m^2) Last 4 Encounter Wt Readings: Date: Wt: 08/28/2021 58.2 kg (128 lb 6.4 oz) (66 %, Z= 0.40)* 08/24/2021 60 kg (132 lb 3.2 oz) (71 %, Z= 0.55)* 10/21/2020 55.6 kg (122 lb 8 oz) (61 %, Z= 0.27)* 10/01/2020 54 kg (119 lb) (55 %, Z= 0.12)* Last 4 Encounter Ht Readings: Date: Ht: 10/21/2020 153.3 cm (5' 0.35") (8 %, Z= -1.38)* 06/21/2019 148 cm (4' 10.27") (3 %, Z= -1.92)* General: Well developed, No acute distress Head: normocephalic Eyes: conjunctivae/corneas clear Ears: normal external ear and canal, tympanic membranes with normal landmarks Nose: no erythema or rhinorrhea Oropharynx: moist mucous membranes, no erythema or exudate Neck: Supple, no adenopathy Resp: lungs clear to auscultation Heart: RRR, normal S1 and S2. , No murmurs Abdomen: Soft, nontender, nondistended, no palpable organomegaly or masses Genitalia: deferred Extremities: No deformities or skin discoloration. Full range of motion. Neuro: No focal deficits or abnormal findings present Skin: no rashes, lesions or jaundice Psych: flat affect, good eye contact ASSESSMENT & PLAN Encounter Diagnosis ICD-10-CM 1. Encounter for routine child health examination with abnormal findings Z00.121 2. Depression with anxiety F41.8 VITAMIN D 25 HYDROXY CBC + DIFF FERRITIN BLD IRON + TIBC TSH BLD T4 FREE/FREE THYROX Recommended counseling. Discussed returning to office to discuss mood. 78 %ile (Z= 0.78) based on CDC (Girls, 2-20 Years) BMI-for-age based on BMI available as of 04/29/2022. Romi is normal weight (BMI 5th% - 84th%): -To maintain a healthy weight, discussed limiting screen time to less than 2 hours per day, physical activity for at least one hour per day, 5 servings of fruits and vegetables per day, 3 meals per day, family meals ar home and no sugar containing beverages Based on PHQ-A Score: 19 (recommended cut off score is 11) and interview, presentation is consistent with diagnosis of depression: -Referred to psychology - Adolescent anticipatory guidance discussed. - Discussed diet and safety. - Dental care discussed. - Bright Futures handout given (See Patient Instructions). - Parent/guardian declined immunization for COVID-19, HPV, Influenza, MenQuadFi, and Men B and was counseled regarding risk. - Follow up in one year for routine physical. SIGNATURE: Garcia Domingo MD PATIENT NAME: Romi Pyle DATE: April 29, 2022 TIME: 3:36 PM documented in this encounter [facility] Evaluation note Diagnosis Encounter for routine child health examination with abnormal findings- Primary Routine or child health check Depression with anxiety Dysthymic disorder [facility] Diagnosis Anxiety with depression- Primary [facility] Diagnosis Anxiety with depression documented in this encounter [facility] note* Diagnosis Acute pain of left knee- Primary documented in this encounter [facility] note* Diagnosis Blurry vision, left eye- Primary Other specified visual disturbances Recurrent headache Headache Vestibular disequilibrium involving left inner ear documented in this encounter [facility] note* Diagnosis Recurrent headache- Primary Headache Superficial keratitis of both eyes Superficial keratitis, unspecified Blurry vision, left eye Other specified visual disturbances Hyperopia, bilateral Regular astigmatism, bilateral documented in this encounter [facility] note* Diagnosis Dizziness- Primary Dizziness and giddiness Recurrent headache Headache documented in this encounter [facility] note* Diagnosis Episode of dizziness- Primary Dizziness and giddiness Blurry vision, left eye Other specified visual disturbances Anxiety with depression Malaise and fatigue Other malaise and fatigue documented in this encounter [facility] note* Diagnosis Anxiety with depression documented in this encounter [facility] note* Diagnosis Anxiety with depression- Primary documented in this encounter [facility] note* Diagnosis Acute pain of left knee documented in this encounter [facility] note* Diagnosis Anxiety with depression- Primary documented in this encounter [facility] note* Diagnosis Encounter for medical examination to establish care- Primary Anxiety with depression Vitamin D deficiency Unspecified vitamin D deficiency documented in this encounter [facility] note* Diagnosis Anxiety with depression documented in this encounter [facility] note* Diagnosis Major depressive disorder, single episode, in partial remission Major depressive disorder, single episode, in partial or unspecified remission documented in this encounter [facility] note* Diagnosis Anxiety with depression documented in this encounter [facility] for referral (narrative)* Diagnostic Procedure Only (Urgent) - Closed Specialty Diagnoses / Procedures Referred By Contac t Referred To Contact XR IMAGING Diagnoses Acute pain of left knee Procedures XR KNEE GENERAL 4V AP BOTH/PA BOTH/LAT/MERC LEFT RADIOLOGIC EXAM KNEE COMPLETE 4/MORE VIEWS Stoney Umaña MD [address] [place] [address] Xr Imaging Referral ID Status Reason Start Date Expiration Date V isits Requested Visits Authorized [id number] Closed Auto-Generate d Referral 12/20/2022 01/19/2024 1 1 [facility] for referral (narrative)* Diagnostic Procedure Only (Urgent) - Closed Specialty Diagnoses / Procedures Referred By Contac t Referred To Contact XR IMAGING Diagnoses Acute pain of left knee Procedures XR KNEE GENERAL 4V AP BOTH/PA BOTH/LAT/MERC LEFT RADIOLOGIC EXAM KNEE COMPLETE 4/MORE VIEWS Stnoey Umaña MD [address] [place] [address] [place] [address] Referral ID Status Reason Start Date Expiration Date V isits Requested Visits Authorized [id number] Closed Auto-Generate d Referral 12/20/2022 01/19/2024 1 1 [facility] for visit Narrative* Diagnostic Procedure Only (Urgent) - Closed Specialty Diagnoses / Procedures Referred By Umair t Referred To Contact XR IMAGING Diagnoses Acute pain of left knee Procedures XR KNEE GENERAL 4V AP BOTH/PA BOTH/LAT/MERC LEFT RADIOLOGIC EXAM KNEE COMPLETE 4/MORE VIEWS Stoney Umaña MD [address] [place] [address] [place] [id number] Referral ID Status Reason Start Date Expiration Date V isits Requested Visits Authorized [id number] Closed Auto-Generate d Referral 12/20/2022 01/19/2024 1 1 [facility] Summary Purpose Family History No Family History Records FoundNo Family History Records FoundNo Family History Records Found Advance Directives No Advanced Directives Records FoundNo Advanced Directives Records FoundNo Advanced Directives Records Found Reason for Referral Specialty Diagnoses / Procedures Referred By Delmaac t Referred To Contact Ent - Otolaryngology Diagnoses Recurrent headache Vestibular disequilibrium involving left inner ear Procedures CONSULT TO ENT OFFICE/OUTPATIENT NEW HIGH MDM 60 MINUTES Garcia Domingo MD [address] [place] [address] Referral ID Status Reason Start Date Expiration Date Visits Requested Visits Authorized [id number] Authorized PCP Requested Referral 10/17/2023 10/16/2024 1 1 Specialty Diagnoses / Procedures Referred By Delmaac t Referred To Contact Ophthalmology Diagnoses Blurry vision, left eye Recurrent headache Procedures CONSULT TO OPHTHALMOLOGY OFFICE/OUTPATIENT NEW HIGH MDM 60 MINUTES Garcia Domingo MD [address] [place] [address] Referral ID Status Reason Start Date Expiration Date Visits Requested Visits Authorized [id number] Authorized PCP Requested Referral 10/17/2023 10/16/2024 1 1 Specialty Diagnoses / Procedures Referred By Contac t Referred To Contact Pediatric Neurology Diagnoses Recurrent headache Blurry vision, left eye Procedures CONSULT TO PEDS NEUROLOGY OFFICE/OUTPATIENT NEW HIGH MDM 60 MINUTES Garcia Domingo MD [address] [place] [address] Referral ID Status Reason Start Date Expiration Date Visits Requested Visits Authorized [id number] Authorized PCP Requested Referral 01/23/2024 01/22/2025 1 1 Specialty Diagnoses / Procedures Referred By Contac t Referred To Contact Diagnoses Anxiety with depression Procedures ESTABLISH WITH PRIMARY CARE NEW PATIENT OFFICE/OUTPATIENT NEW HIGH MDM 60 MINUTES Garcia Domingo MD [address] [place] [address] Referral ID Status Reason Start Date Expiration Date Visits Requested Visits Authorized [id number] Authorized PCP Requested Referral 06/25/2024 06/25/2025 1 1 Additional Source Comments INFORMATION SOURCE (unrecogn ized section and content) DATE CREATED AUTHOR 02/15/2018 [facility] DATE CREATED AUTHOR AUTHOR'S ORGANIZ ATION 10/20/2024 [facility] DATE CREATED AUTHOR AUTHOR'S ORGANIZ ATION 02/16/2025 [facility] Source Comments (unrecognize d section and content) In the event this informatio n is protected by the Federal Confidentiality of Alcohol and Drug Abuse Patient Records regulations: The Federal rules restrict any use of the information to criminally investigate or prosecute any alcohol or drug abuse patient.[facility] the event this information is protected by the Federal Confidentiality of Alcohol and Drug Abuse Patient Records regulations: The Federal rules restrict any use of the information to criminally investigate or prosecute any alcohol or drug abuse patient.[facility] the event this information is protected by the Federal Confidentiality of Alcohol and Drug Abuse Patient Records regulations: The Federal rules restrict any use of the information to criminally investigate or prosecute any alcohol or drug abuse patient.[facility] the event this information is protected by the Federal Confidentiality of Alcohol and Drug Abuse Patient Records regulations: The Federal rules restrict any use of the information to criminally investigate or prosecute any alcohol or drug abuse patient.[facility] the event this information is protected by the Federal Confidentiality of Alcohol and Drug Abuse Patient Records regulations: The Federal rules restrict any use of the information to criminally investigate or prosecute any alcohol or drug abuse patient.[facility] the event this information is protected by the Federal Confidentiality of Alcohol and Drug Abuse Patient Records regulations: The Federal rules restrict any use of the information to criminally investigate or prosecute any alcohol or drug abuse patient.[facility] the event this information is protected by the Federal Confidentiality of Alcohol and Drug Abuse Patient Records regulations: The Federal rules restrict any use of the information to criminally investigate or prosecute any alcohol or drug abuse patient.[facility] the event this information is protected by the Federal Confidentiality of Alcohol and Drug Abuse Patient Records regulations: The Federal rules restrict any use of the information to criminally investigate or prosecute any alcohol or drug abuse patient.[facility] the event this information is protected by the Federal Confidentiality of Alcohol and Drug Abuse Patient Records regulations: The Federal rules restrict any use of the information to criminally investigate or prosecute any alcohol or drug abuse patient.[facility] the event this information is protected by the Federal Confidentiality of Alcohol and Drug Abuse Patient Records regulations: The Federal rules restrict any use of the information to criminally investigate or prosecute any alcohol or drug abuse patient.[facility] the event this information is protected by the Federal Confidentiality of Alcohol and Drug Abuse Patient Records regulations: The Federal rules restrict any use of the information to criminally investigate or prosecute any alcohol or drug abuse patient.[facility] the event this information is protected by the Federal Confidentiality of Alcohol and Drug Abuse Patient Records regulations: The Federal rules restrict any use of the information to criminally investigate or prosecute any alcohol or drug abuse patient.[facility] the event this information is protected by the Federal Confidentiality of Alcohol and Drug Abuse Patient Records regulations: The Federal rules restrict any use of the information to criminally investigate or prosecute any alcohol or drug abuse patient.[facility] the event this information is protected by the Federal Confidentiality of Alcohol and Drug Abuse Patient Records regulations: The Federal rules restrict any use of the information to criminally investigate or prosecute any alcohol or drug abuse patient.[facility] the event this information is protected by the Federal Confidentiality of Alcohol and Drug Abuse Patient Records regulations: The Federal rules restrict any use of the information to criminally investigate or prosecute any alcohol or drug abuse patient.[facility] the event this information is protected by the Federal Confidentiality of Alcohol and Drug Abuse Patient Records regulations: The Federal rules restrict any use of the information to criminally investigate or prosecute any alcohol or drug abuse patient.[facility]In the event this information is protected by the Federal Confidentiality of Alcohol and Drug Abuse Patient Records regulations: The Federal rules restrict any use of the information to criminally investigate or prosecute any alcohol or drug abuse patient.[facility]In the event this information is protected by the Federal Confidentiality of Alcohol and Drug Abuse Patient Records regulations: The Federal rules restrict any use of the information to criminally investigate or prosecute any alcohol or drug abuse patient.[facility]In the event this information is protected by the Federal Confidentiality of Alcohol and Drug Abuse Patient Records regulations: The Federal rules restrict any use of the information to criminally investigate or prosecute any alcohol or drug abuse patient.[facility]In the event this information is protected by the Federal Confidentiality of Alcohol and Drug Abuse Patient Records regulations: The Federal rules restrict any use of the information to criminally investigate or prosecute any alcohol or drug abuse patient.[facility] Reason for Visit (unrecogniz ed section and content) Reason Comments Well Child Reason Comments Results Reason Comments Anxiety Ongoing with school, increasing recently Reason Comments medicine check Pt reports it helps, taking it daily. Needs refill Reason Comments Knee Pain left, fell x 3 days Reason Comments Headache Reason Comments Headaches Intermittent headach es x 2 weeks. Had a similar episode of headaches like this about 2 years ago- they stopped then on their own. Reporting a blur around lights visually- denies any photosensitivity. Dizziness Intermittent x 2 wee ks, noting this with and without headaches.No known fevers. Reason Comments Blurred Vision Both Eyes Specialty Diagnoses / Procedures Referred By Umair odom Referred To Contact Ophthalmology Diagnoses Blurry vision, left eye Recurrent headache Procedures CONSULT TO OPHTHALMOLOGY OFFICE/OUTPATIENT NEW HIGH MDM 60 MINUTES Garcia Domingo MD [address] [place] [address] Referral ID Status Reason Start Date Expiration Date V isits Requested Visits Authorized [id number] Closed PCP Requested Referral 10/17/2023 10/16/2024 1 1 Reason Comments New Patient Specialty Diagnoses / Procedures Referred By Umair odom Referred To Contact Ent - Otolaryngology Diagnoses Recurrent headache Vestibular disequilibrium involving left inner ear Procedures CONSULT TO ENT OFFICE/OUTPATIENT NEW HIGH MDM 60 MINUTES Garcia Domingo MD [address] [place] [address] Referral ID Status Reason Start Date Expiration Date V isits Requested Visits Authorized [id number] Closed PCP Requested Referral 10/17/2023 10/16/2024 1 1 Reason Comments Follow Up Patient here to foll ow up for fatigue and intermittent dizziness. Meclizine is not helpful. Seen ENT, Opthalmology in 11/2023. Reporting dizzy only for a few seconds now, not prolonged bouts of this. Headaches are less frequent. Feeling of fatigue about the same. Reason Comments Depression/ Anxiety Medication check Res tarted on Zoloft 25mg once daily on 01/22, doing good on this medication/ denies any severe adverse reactions. Reason Comments Patient Question Reason Comments Medication check Zoloft 50mg daily cu rrently, doing well on this, noting changes in menstrual cycles on medication Reason Comments Medication check Doing well on Zoloft 75mg daily, denies any adverse reactions Reason Comments Transition Of Care From Pediatrics Specialty Diagnoses / Procedures Referred By Contac t Referred To Contact Diagnoses Anxiety with depression Procedures ESTABLISH WITH PRIMARY CARE NEW PATIENT OFFICE/OUTPATIENT NEW [facility] MDM 60 MINUTES Garcia Domingo MD [address] [place] [address] Referral ID Status Reason Start Date Expiration Date V isits Requested Visits Authorized [id number] Closed PCP Requested Referral 06/25/2024 06/25/2025 1 1 Reason Comments Refill Request Reason Comments Medication Problem Would like to wean o ff of Zoloft. Reason Onset Date Comments Refill Request 03/15/2025 Care Teams (unrecognized sec tion and content) Prepress Specialist Relationship Specialty Start Date End Date Garcia Domingo MD [address], [place] [id number] [phone] PCP - General Pediatrics 09/11/20 Prepress Specialist Relationship Specialty Start Date End Date Garcia Domingo MD [address] [place] [address] PCP - General Pediatrics 09/11/20 Prepress Specialist Relationship Specialty Start Date End Date Garcia Domingo MD [address] [place] [address] PCP - General Pediatrics 09/11/20 Prepress Specialist Relationship Specialty Start Date End Date Garcia Domingo MD [address] [place] [address] PCP - General Pediatrics 09/11/20 Prepress Specialist Relationship Specialty Start Date End Date Garcia Domingo MD [address] [place] [address] PCP - General Pediatrics 09/11/20 Prepress Specialist Relationship Specialty Start Date End Date Garcia Domingo MD [address] [place] [address] PCP - General Pediatrics 09/11/20 Prepress Specialist Relationship Specialty Start Date End Date Garcia Domingo MD [address] [place] [address] PCP - General Pediatrics 09/11/20 Prepress Specialist Relationship Specialty Start Date End Date Garcia Domingo MD [address] [place] [address] PCP - General Pediatrics 09/11/20 Prepress Specialist Relationship Specialty Start Date End Date Garcia Domingo MD [address] [place] [address] PCP - General Pediatrics 09/11/20 Prepress Specialist Relationship Specialty Start Date End Date Garcia Domingo MD [address] [place] [address] PCP - General Pediatrics 09/11/20 Prepress Specialist Relationship Specialty Start Date End Date Garcia Domingo MD [address] [place] [address] PCP - General Pediatrics 09/11/20 Prepress Specialist Relationship Specialty Start Date End Date Garcia Domingo MD [address] [place] [address] PCP - General Pediatrics 09/11/20 Prepress Specialist Relationship Specialty Start Date End Date Garcia Domingo MD [address] [place] [address] PCP - General Pediatrics 09/11/20 Prepress Specialist Relationship Specialty Start Date End Date Garcia Domingo MD [address] [place] [address] PCP - General Pediatrics 09/11/20 Prepress Specialist Relationship Specialty Start Date End Date Danna Curiel MD [address] [facility] [place] [address] PCP - General Family Medicine 09/10/24 Podlogar, KENDALL MyrickN.SENIOR RESEARCH PROJECT MANAGER [address] [place] [place] [address] Family Medicine 09/10/24 Prepress Specialist Relationship Specialty Start Date End Date Danna Curiel MD [address] [place] [place] [address] PCP - General Family Medicine 09/10/24 Podlogar, Negro, CRATE BUILDER.SENIOR RESEARCH PROJECT MANAGER [address] [facility] [place] [place] [address] Family Medicine 09/10/24 Podlogar, Negro, CRATE BUILDER.SENIOR RESEARCH PROJECT MANAGER [address] [facility] [place] [place] [address] Heat Set Operator Family Medicine 11/02/24 Jo Reis CRATE BUILDER.SENIOR RESEARCH PROJECT MANAGER [address] [facility] [place] [address] Heat Set Operator Family Medicine 11/12/24 Prepress Specialist Relationship Specialty Start Date End Date Danna Curiel MD [address] [facility] [place] [place] [address] PCP - General Family Medicine 09/10/24 Podlogar, Negro, CRATE BUILDER.SENIOR RESEARCH PROJECT MANAGER [address] [facility] [place] [place] [address] Family Medicine 09/10/24 Podlogar, Negro, CRATE BUILDER.SENIOR RESEARCH PROJECT MANAGER [address] [place] [address] [facility]ly [facility], [facility]–1983 11/02/24 Jo Reis APRN.SENIOR RESEARCH PROJECT MANAGER [address] [place], [place] [id number] [facility]ly [facility], [facility]–1983 01/31/25 Prepress Specialist Relationship Specialty Start Date End Date Danna Curiel MD [address] [place], [place] [id number] PCP - General Family Medicine 09/10/24 PodlogarNegro APRN.SENIOR RESEARCH PROJECT MANAGER [address] [place], [place] [id number] Family Medicine 09/10/24 PodlogarNegro APRN.SENIOR RESEARCH PROJECT MANAGER [address] [place], [place] [id number] [facility]ly [facility], [facility]–1983 11/02/24 Jo Reis APRN.SENIOR RESEARCH PROJECT MANAGER [address] [place], [place] [id number] [facility]ly [facility], [facility]–1983 01/31/25 Inactive Administered Medications - up to 3 most recent administrations Administered Medications (un recognized section and content) Medication Order MAR Action Action Date Dose Rate Site tropicamide 1 % 1 Drop (MYDRIACYL) 1 Drop, BOTH EYES, ONCE, 1 dose, On Prema 11/24/23 at 1030, FOR THE EYE Given 11/24/2023 10:30 AM EDT 1 Drop FOR RECORDS PERTAINING TO PATIENTS WHO ARE OR HAVE BEEN ENROLLED IN A CHEMICAL DEPENDENCY/SUBSTANCEABUSE PROGRAM, SOME INFORMATION MAY BE OMITTED. This clinical summary was aggregated from multiple sources. Caution should be exercised in using it in the provision of clinical care. This summary normalizes information from multiple sources, and as a consequence, information in this document may materially change the coding, format and clinical context of patient data. In addition, data may be omitted in some cases. CLINICAL DECISIONS SHOULD BE BASED ON THE PRIMARY CLINICAL RECORDS. [facility] [employer] [facility]. provides no warranty or guarantee of the accuracy or completeness of information in this document.
[2025-07-06 21:08] LABS: Lipase 15 U/L (13-75)
[2025-07-06 21:20] LABS: AST(SGOT) 21 U/L (<=31); Alanine Aminotransfer ALT/SGPT 17 U/L (<=34); Albumin, Serum 4.7 g/dL (3.5-5.0); Alkaline Phosphatase 60 U/L (35-104); Anion Gap 12 (5-15); BUN 10 mg/dL (4-19); BUN/Creat Ratio 13.3 RATIO (10-20); Calcium,Total 9.4 mg/dL (7.6-11.0); Carbon Dioxide 26.6 mmol/L (21.0-32.0); Chloride 102 mmol/L (98-108); Estimated Creatinine Clearance 107.13 ml/min (50-250); Globulin 2.9 g/dL (2.2-4.2); Glucose 105 mg/dL (70-99); Potassium 3.7 mmol/L (3.3-5.1)
[2025-07-06 21:39] LABS: Internal QC Validated? YES +Cl - CLEAR BKGD; Pregnancy, Serum, hCG Quali. NEGATIVE Negative; Record Kit Lot#, Serum Preg. 980607
[2025-07-06 22:24] VITALS: BP 137/86; PULSE 84; RESP 16; O2SAT 100
[2025-07-07] VITALS: BP 114/72; PULSE 78; RESP 14; O2SAT 98
[2025-07-07 02:00] VITALS: BP 114/62; PULSE 74; RESP 14; O2SAT 97
[2025-07-07 04:00] VITALS: BP 116/79; PULSE 76; RESP 12; O2SAT 98
[2025-07-07 04:59] VITALS: BP 124/55; PULSE 95; RESP 14; TEMP 36.6; O2SAT 96
== END 2025-07-07 05:03 | disposition home or self-care (01) ==
PROVIDERS: Emergency Provider Emergency Medicine; PCP Nurse Practitioner Primary Care; Visit Provider Emergency Medicine
DX: R10.12 Left upper quadrant pain (principal); K59.00 Constipation, unspecified; R11.2 Nausea with vomiting, unspecified; F32.A Depression, unspecified; Z79.899 Other long term (current) drug therapy
CPT/HCPCS: 74177; 80053; 83690; 84703; 85025; 96361; 96374; 96375; 96376; 99283; Q9967; A4216; J2405